=== PATIENT | male | born 1955 | race Caucasian/White ===

== ENCOUNTER → 2021-11-20 13:03 | Outpatient (CLI) | payer MEDICARE, SELFPAY ==
[2021-11-20 13:39] LABS: Basophils # 0.1 K/mm3 (0-0.2); Eosinophils # 0.2 K/mm3 (0.0-0.4); Eosinophils % 2.4 % (0.1-12.0); Hematocrit 40.2 % (42.0-52.0); Hemoglobin 12.3 g/dL (14.1-18.0); Lymphocytes # 0.8 K/mm3 (0.7-4.5); Lymphocytes % 13.5 % (10-50); Mean Corpuscular HGB Conc 30.5 g/dL (31.8-35.4); Mean Corpuscular Hemoglobin 29.8 pg (27.0-31.2); Mean Corpuscular Volume 97.6 fl (80-94); Mean Platelet Volume 8.2 fl (7.4-10.4); Monocytes # 0.4 K/mm3 (0.1-1.0); Monocytes % 5.8 % (1.7-9.3); Neutrophils # 4.7 K/mm3 (1.8-7.8); Neutrophils % 77.3 % (37.0-80.0); Platelet Count 357 K/mm3 (142-424); Red Blood Count 4.12 M/mm3 (4.60-6.20); Red Cell Distribution Width 15.5 % (11.5-17.5); White Blood Count 6.1 K/mm3 (4.8-10.8)
[2021-11-20 14:22] LABS: Chloride 99 mmol/L (98-107); Free T4 (Free Thyroxine) 1.09 ng/dl (0.78-2.19); Potassium 4.4 mmoL/L (3.5-5.1); Sodium 134 mmol/L (136-145)
[2021-11-20 14:24] LABS: Blood Urea Nitrogen 12 mg/dl (9-20); Estimated Glomerular Filt Rate 75 ml/min (>60); GFR (African American) 91 ML/MIN (>60)
[2021-11-20 14:25] LABS: Alanine Aminotransferase 20 U/L (12-78); Albumin Level 3.6 g/dl (3.5-5.0); Alkaline Phosphatase 97 U/L (38-126); Anion Gap 9.4 mEq/L (5-15); Aspartate Amino Transferase 36 U/L (17-59); Bilirubin,Total 0.2 mg/dl (0.2-1.3); Carbon Dioxide 30 mmol/L (22.0-30.0); Globulin 3.5 g/dL (1.3-3.2); Total Protein,Serum 7.1 g/dl (6.3-8.2)
[2021-11-20 14:26] LABS: Calcium 9.5 mg/dl (8.4-10.2); Glucose 170 mg/dl (74-100)
[2021-11-20 14:56] LABS: Thyroid Stimulating Hormone 1.24 uIU/mL (0.465-4.68)
== END ==
PROVIDERS: Internal Medicine Hematology & Oncology; Visit Provider Internal Medicine
DX: C34.90 Malignant neoplasm of unspecified part of unspecified bronchus or lung (principal); R53.83 Other fatigue
CPT/HCPCS: 36415; 80053; 84439; 84443; 85025

== ENCOUNTER → 2021-12-24 13:17 | Outpatient (CLI) | payer MEDICARE, SELFPAY ==
[2021-12-24 13:51] LABS: Basophils # 0.1 K/mm3 (0-0.2); Basophils % 0.8 % (0.1-2.0); Eosinophils # 0.2 K/mm3 (0.0-0.4); Eosinophils % 2.3 % (0.1-12.0); Hematocrit 41.8 % (42.0-52.0); Hemoglobin 13.5 g/dL (14.1-18.0); Lymphocytes # 1.4 K/mm3 (0.7-4.5); Mean Corpuscular HGB Conc 32.4 g/dL (31.8-35.4); Mean Corpuscular Hemoglobin 29.9 pg (27.0-31.2); Mean Corpuscular Volume 92.3 fl (80-94); Mean Platelet Volume 7.6 fl (7.4-10.4); Monocytes # 0.5 K/mm3 (0.1-1.0); Monocytes % 7.6 % (1.7-9.3); Neutrophils # 4.3 K/mm3 (1.8-7.8); Neutrophils % 67.3 % (37.0-80.0); Platelet Count 374 K/mm3 (142-424); Red Blood Count 4.52 M/mm3 (4.60-6.20); Red Cell Distribution Width 13.8 % (11.5-17.5); White Blood Count 6.4 K/mm3 (4.8-10.8)
[2021-12-24 16:07] LABS: Alanine Aminotransferase 27 U/L (12-78); Albumin Level 3.5 g/dl (3.5-5.0); Albumin/Globulin Ratio 1.1 (1.1-1.8); Alkaline Phosphatase 102 U/L (38-126); Anion Gap 14.6 mEq/L (5-15); Aspartate Amino Transferase 48 U/L (17-59); Bilirubin,Total 0.2 mg/dl (0.2-1.3); Blood Urea Nitrogen 11 mg/dl (9-20); Calcium 9.4 mg/dl (8.4-10.2); Carbon Dioxide 24 mmol/L (22.0-30.0); Chloride 97 mmol/L (98-107); Estimated Glomerular Filt Rate 75 ml/min (>60); GFR (African American) 90 ML/MIN (>60); Globulin 3.2 g/dL (1.3-3.2); Glucose 119 mg/dl (74-100); Potassium 4.6 mmoL/L (3.5-5.1); Sodium 131 mmol/L (136-145); Total Protein,Serum 6.7 g/dl (6.3-8.2)
[2021-12-24 16:22] LABS: Free T4 (Free Thyroxine) 0.95 ng/dl (0.78-2.19)
[2021-12-24 16:37] LABS: Thyroid Stimulating Hormone 0.97 uIU/mL (0.465-4.68)
== END ==
PROVIDERS: Visit Provider Internal Medicine Hematology & Oncology
DX: C34.90 Malignant neoplasm of unspecified part of unspecified bronchus or lung (principal); R53.83 Other fatigue
CPT/HCPCS: 36415; 80053; 84439; 84443; 85025

== ENCOUNTER → 2022-01-21 12:55 | Outpatient (CLI) | payer MEDICARE, SELFPAY ==
[2022-01-21 14:25] LABS: Basophils # 0.1 K/mm3 (0-0.2); Basophils % 0.9 % (0.1-2.0); Eosinophils # 0.2 K/mm3 (0.0-0.4); Eosinophils % 2.9 % (0.1-12.0); Hematocrit 41.4 % (42.0-52.0); Hemoglobin 13.6 g/dL (14.1-18.0); Lymphocytes # 1.4 K/mm3 (0.7-4.5); Lymphocytes % 23.1 % (10-50); Mean Corpuscular HGB Conc 32.8 g/dL (31.8-35.4); Mean Corpuscular Hemoglobin 29.6 pg (27.0-31.2); Mean Corpuscular Volume 90.2 fl (80-94); Mean Platelet Volume 8.2 fl (7.4-10.4); Monocytes # 0.4 K/mm3 (0.1-1.0); Monocytes % 7.1 % (1.7-9.3); Platelet Count 322 K/mm3 (142-424); Red Blood Count 4.59 M/mm3 (4.60-6.20); Red Cell Distribution Width 14.3 % (11.5-17.5)
== END ==
PROVIDERS: Visit Provider Internal Medicine Hematology & Oncology
DX: C34.90 Malignant neoplasm of unspecified part of unspecified bronchus or lung (principal)
CPT/HCPCS: 36415; 85025

== ENCOUNTER 2022-01-21 13:32 | Emergency (ER) | payer MEDICARE, SELFPAY ==
[2022-01-21] VITALS (7 sets, daily range): BP systolic 120–156; BP diastolic 68–87; PULSE 85–98; RESP 16–22; TEMP 36.7–36.8; O2SAT 96–98; BMI 24.2
--- NOTE | 2022-01-21 13:28 | ECG_ITS ---
APPROVED REPORT Exam: Resting ECG HR:100 bpm ECG Measurements Heart Rate 100 AXES WA 158 P 83 QRSd 90 QRS 92 QT 337 T 80 QTc 394 Conclusion SINUS TACHYCARDIA BORDERLINE RIGHT AXIS DEVIATION [QRS AXIS > 90] ABNORMAL RHYTHM ECG UNCONFIRMED REPORT Electronically signed by : Ted Carlson MD 01/21/2022 21:21:49
--- NOTE | 2022-01-21 13:58 | CT_ITS ---
FINAL REPORT TECHNIQUE: Postcontrast axial images of the chest were performed in a CTA protocol. This study was performed with techniques to keep radiation doses as low as reasonably achievable, (ALARA). Individualized dose reduction technique using automated exposure control or adjustment of mA and/or kV according to the patient's size were employed. CLINICAL HISTORY: chest pain, cancer, tachycardia FINDINGS: There is thickening of the thoracic esophagus, favor inflammatory. This could be further evaluated with upper endoscopy. The heart is normal in size. There is a small hiatal hernia. No adenopathy is identified. No pleural or pericardial effusion is identified. The thoracic aorta is normal in caliber with no focal aneurysm or dissection identified. There is no filling defect to suggest pulmonary embolism. Soft tissue opacities are seen of the left lung of uncertain etiology. Some of these are felt to be inflammatory. However, there is an area in the posterior left upper lobe measuring 31 mm containing cavitation. Findings may represent neoplasm or post treatment change. There are mild changes of emphysema. The images of the upper abdomen are unremarkable. IMPRESSION: No evidence for PE on this exam. Thickening of the thoracic esophagus, favor inflammatory. Findings could be further evaluated with upper endoscopy. Soft tissue opacity of the left lung which may be inflammatory. Area of cavitation in the posterior left upper lobe measuring 31 mm which may represent neoplasm or post treatment change. Reviewed, Interpreted and Dictated by Micah Verduzco III, MD Transcribed by Michelle Bernstein Authenticated and [facility]
--- NOTE | 2022-01-21 14:00 | HMH.EDCP ---
Discharge Plan Disposition Patient Disposition: Home, Self-Care Condition: Fair Prescriptions Prescriptions: No Action No Known Home Medications Referrals Follow up/Referrals: Provider,MD Hernan [Primary Care Provider] - See instructions Clinical Impressions Clinical Impression: Chest pain Discharge ED Provider: Abelardo Rutherford Chest Pain HPI General Chief Complaint: Chest Pain Stated Complaint: chest pain Time Seen by Provider: 01/21/22 13:50 Mode of Arrival: Ambulatory Source of Information: Patient Limitations: No Limitations Description of Symptoms (Recalled from ER Triage Doc. by RN): PT REPORTS DULL CHEST PAIN THAT STARTED ON FRIDAY. SHARP CHEST PAIN WITH COUGHING OR SNEEZING History of Present Illness HPI narrative: Patient is a 66-year-old male with past medical history of lung cancer who states that he started to get chest pain on Friday. He locates it in his left side and says that it is worse with coughing or sneezing. He says this is happened 1 time in the past and he was evaluated but subsequently left ED because the wait was too long. He says that he had radiation around that area and is wondering if his pain is from the radiation. He still goes to immunotherapy. He denies any congestion. Denies any hemoptysis. Denies any fever or chills. Denies any abdominal pain. No shoulder pain. He says the pain is worse with deep inspiration. Related Data Home Medications Medication Instructions Recorded Confirmed No Known Home Medications 01/21/22 01/21/22 Allergies Allergy/AdvReac Type Severity Reaction Status Date / Time Penicillins Allergy Verified 01/21/22 13:38 [facility] Medical History (Updated 01/21/22 @ 16:51 by Abelarod Rutherford MD) Non-small cell lung cancer Family History (Updated 01/21/22 @ 13:47 by Karen Barnett RN) Other No significant family history Social History (Updated 01/21/22 @ 13:47 by Karen Barnett RN) Smoking Status: Current every day smoker alcohol intake: never current occupational status: disabled Travel in the last 8 weeks: None ROS Obtained: Yes All systems reviewed & no additional complaints except as documented A 14 point review system was obtained otherwise negative except per HPI Physical Exam General General appearance: alert and in no apparent distress Head Head exam: atraumatic, normocephalic and normal inspection Eye Eye exam: Present normal appearance, PERRL and EOMI ENT ENT exam: Present normal exam, normal oropharynx, mucous membranes moist, TM's normal bilaterally and normal external ear exam Neck Neck exam: Present normal inspection, full ROM and trachea midline; Absent meningismus or lymphadenopathy Chest Chest inspection: Present normal inspection and symmetric chest wall rise; Absent tenderness Respiratory Respiratory exam: Present normal lung sounds bilaterally; Absent respiratory distress Cardiovascular Cardiovascular exam: Present normal rhythm and tachycardia; Absent JVD Abdominal Exam Abdominal exam: Present soft and normal bowel sounds; Absent distention, tenderness or guarding Extremities Exam Extremities exam: Present normal inspection, full ROM and normal capillary refill; Absent calf tenderness Back Exam Back exam: Present normal inspection; Absent tenderness Neurological Exam Neurological exam: Present alert and oriented X3 Psychiatric Psychiatric exam: Present normal affect and normal mood Skin Skin exam: Present warm, dry, intact and normal color Lymphatic Lymphatic Findings: no adenopathy Medical Decision Making Medical Records Medical records reviewed: Yes I reviewed the patient's medical records. Ag Inquiry Pt receiving controlled substance: No Vital Signs: 01/21/22 13:33 01/21/22 14:00 01/21/22 14:31 Temperature 98.2 F Temperature Source Oral Pulse Rate 90 85 Pulse Rate [Radial] 98 H Respiratory Rate 18 16 20 Blood Pressure 150/87 H
[2022-01-21 14:06] LABS: Basophils # 0.1 K/mm3 (0-0.2); Basophils % 1.1 % (0.1-2.0); Eosinophils # 0.2 K/mm3 (0.0-0.4); Hematocrit 41.3 % (42.0-52.0); Hemoglobin 13.8 g/dL (14.1-18.0); Lymphocytes # 1.4 K/mm3 (0.7-4.5); Lymphocytes % 22.7 % (10-50); Mean Corpuscular HGB Conc 33.4 g/dL (31.8-35.4); Mean Corpuscular Volume 89.9 fl (80-94); Mean Platelet Volume 7.8 fl (7.4-10.4); Monocytes # 0.4 K/mm3 (0.1-1.0); Neutrophils # 4.1 K/mm3 (1.8-7.8); Neutrophils % 66.3 % (37.0-80.0); Platelet Count 298 K/mm3 (142-424); Red Cell Distribution Width 14.1 % (11.5-17.5); White Blood Count 6.2 K/mm3 (4.8-10.8)
[2022-01-21 14:07] LABS: Chloride 99 mmol/L (98-107)
[2022-01-21 14:08] LABS: Potassium 3.9 mmoL/L (3.5-5.1); Sodium 134 mmol/L (136-145)
[2022-01-21 14:10] LABS: Alanine Aminotransferase 77 U/L (12-78); Alkaline Phosphatase 83 U/L (38-126); Aspartate Amino Transferase 100 U/L (17-59); Bilirubin,Total 0.2 mg/dl (0.2-1.3); Blood Urea Nitrogen 15 mg/dl (9-20); Creatinine Clearance Estimated 70 mL/min (50-200); Estimated Glomerular Filt Rate 75 ml/min (>60); GFR (African American) 90 ML/MIN (>60)
[2022-01-21 14:11] LABS: Albumin Level 3.7 g/dl (3.5-5.0); Albumin/Globulin Ratio 1.1 (1.1-1.8); Anion Gap 9.9 mEq/L (5-15); Calcium 8.6 mg/dl (8.4-10.2); Carbon Dioxide 29 mmol/L (22.0-30.0); Globulin 3.4 g/dL (1.3-3.2); Glucose 123 mg/dl (74-100); Total Protein,Serum 7.1 g/dl (6.3-8.2)
[2022-01-21 14:16] LABS: C-Reactive Protein 34.5 mg/L (0-4)
--- NOTE | 2022-01-21 14:18 | PC.NURSE ---
PT MEDICATED PER EMAR, PT TALKING ON PHONE, WARM BLANKET PROVIDED. NO NEEDS AT THIS TIME
[2022-01-21 14:26] LABS: Troponin I < 0.01 ng/ml (0.00-0.034)
--- NOTE | 2022-01-21 14:49 | PC.NURSE ---
rounded on pt at this time, pt states no needs at this time. Notified pt radiology should be in soon to get him for CTA, pt verbalized understanding. Call light within reach.
--- NOTE | 2022-01-21 16:14 | PC.NURSE ---
contacted rad to check on status of CT results, rad staff states they will check on it
== END 2022-01-21 17:25 | disposition home or self-care (01) ==
PROVIDERS: Emergency Provider Student in an Organized Health Care Education/Training Program
DX: R07.9 Chest pain, unspecified (principal); Z85.118 Personal history of other malignant neoplasm of bronchus and lung; Z88.0 Allergy status to penicillin; Z72.0 Tobacco use
CPT/HCPCS: 36415; 71275; 80053; 84484; 85025; 86140; 93005; 99284; Q9967

== ENCOUNTER → 2022-02-11 12:24 | Outpatient (CLI) | payer MEDICARE, SELFPAY ==
--- NOTE | 2022-02-11 | CA_ITS ---
APPROVED REPORT EXAM: Comprehensive 2D, Doppler, and color-flow Echocardiogram Marketing Trainee: STEPHY Villalpando, RVS Ht: 5 ft 6 in Wt: 150lbs BSA: 1.77 HR: 110 bpm BP: 126/84 mmHg Rhythm: Irregular Indications: CP, Small cell lung Cancer, murmur 2D Dimensions IVSd 1.13 cm LVEF (Visual) 52.80 % PWd 0.93 cm LA Volume 35.00 mL LVDd 4.31 cm LA Volume Index 19.30 mL/m2 (M/F) 16-34 LVDs 3.15 cm Aortic Root 3.49 cm Left Atrium 3.43 cm LVOT 1.87 cm (M/F) 1.5-2.5 M-Mode Dimensions RVDd 2.55 cm (0.9-2.6) LA Diam 3.70 cm (1.9-4.0) LVDd 4.59 cm (3.5-5.7) Ao Diam 3.33 cm (2.0-3.7) LVDs 3.45 cm (3.5-5.7) IVSd 1.17 cm (0.6-1.1) PWd 1.04 cm (0.6-1.1) EF (Teich) 49.30% EPSs 0.13 cm FS 24.80% EDV (Teich) 96.80 mL TAPSE 2.08 (<1.7) ESV (Teich) 49.10 mL LV Diastology E Decel Time 170.00 (160-240 msec) E/A Ratio 0.60 MED E' 5.30 (< 7 cm/sec) MED A' 10.80 cm/s E'/MED E' Ratio 12.58 (>14) LAT E' 7.30 (<10 cm/sec) LAT A' 13.30 cm/s E/LAT E' Ratio 9.14 (>14) Aortic Valve LVOT Max 114.00 (70-110 cm/s) LVOT VTI 21.30 cm AoV Peak Jose L. 122.00 (50-130 cm/s) AO Peak GR. 6.00 mmHg AO Mean GR. 2.90 (<5 mmHg) AO VTI 20.94 (18-25 cm) CHECO (VTI) 2.79 (2.5-4.5 cm2) Mitral Valve MV A Velocity 111.00 (40-130 cm/s) E/A Ratio 0.60 MV Decel. Time 170.00 (160-240 ms) Pulmonary Valve PV Peak Velocity 81.00 (50-150 cm/s) ID End VMAX 117.00 cm/s Tricuspid Valve TR P. Velocity 179.00 cm/s RAP Estimate 10.00 mmHg RVSP 22.80 mmHg Left Ventricle Left atrium is mildly enlarged, left ventricle is normal size mild concentric left ventricular hypertrophy, estimated ejection fraction 55% with no regional wall motion abnormality, grade 1 diastolic dysfunction seen without tissue Doppler evidence of raise left atrial pressure. Right Ventricle Right atrium and right ventricle are normal size and contractility. Aortic Valve Aortic valve is minimally thickened and fibrosed there is no aortic stenosis or aortic insufficiency. Mitral Valve Mitral valve grossly normal, there is trace mitral regurgitation. Tricuspid Valve Tricuspid valve grossly normal, there is trace tricuspid regurgitation, tricuspid regurgitation jet velocity is inadequate for calculation of the right ventricular systolic pressure. Pulmonic Valve Pulmonic valve is poorly visualized. Great Vessels Aortic root is normal size. Inferior vena cava is normal size with normal inspiratory collapse. Pericardium No significant pericardial effusion noted. Conclusion 1. Mildly enlarged atrium, normal left ventricular size, mild concentric left ventricular hypertrophy, estimated ejection fraction 55% with no regional wall motion abnormality, grade 1 diastolic dysfunction seen without tissue Doppler evidence of raise left atrial pressure. 2. Trace mitral and tricuspid regurgitation. 3. No significant pericardial effusion. 4. Inferior vena cava normal size with normal inspiratory collapse. Electronically signed by : Pete Fabian MD 02/11/2022 13:26:12
== END ==
PROVIDERS: PCP Internal Medicine Hematology & Oncology; Visit Provider Internal Medicine Hematology & Oncology
DX: R07.9 Chest pain, unspecified (principal)
CPT/HCPCS: 93306

== ENCOUNTER → 2022-02-18 12:21 | Outpatient (CLI) | payer MEDICARE, SELFPAY ==
[2022-02-18 13:21] LABS: Basophils # 0.1 K/mm3 (0-0.2); Basophils % 0.9 % (0.1-2.0); Eosinophils # 0.2 K/mm3 (0.0-0.4); Eosinophils % 3.1 % (0.1-12.0); Hematocrit 41.6 % (42.0-52.0); Hemoglobin 13.3 g/dL (14.1-18.0); Lymphocytes # 1.2 K/mm3 (0.7-4.5); Mean Corpuscular HGB Conc 32.1 g/dL (31.8-35.4); Mean Corpuscular Hemoglobin 29.1 pg (27.0-31.2); Mean Corpuscular Volume 90.9 fl (80-94); Mean Platelet Volume 7.8 fl (7.4-10.4); Monocytes # 0.4 K/mm3 (0.1-1.0); Neutrophils # 4.6 K/mm3 (1.8-7.8); Platelet Count 397 K/mm3 (142-424); Red Blood Count 4.57 M/mm3 (4.60-6.20); Red Cell Distribution Width 14.3 % (11.5-17.5); White Blood Count 6.5 K/mm3 (4.8-10.8)
[2022-02-18 13:39] LABS: Chloride 99 mmol/L (98-107); Potassium 4.2 mmoL/L (3.5-5.1); Sodium 134 mmol/L (136-145)
[2022-02-18 13:41] LABS: Blood Urea Nitrogen 11 mg/dl (9-20); Estimated Glomerular Filt Rate 75 ml/min (>60); GFR (African American) 90 ML/MIN (>60)
[2022-02-18 13:42] LABS: Alanine Aminotransferase 21 U/L (12-78); Albumin Level 3.4 g/dl (3.5-5.0); Albumin/Globulin Ratio 1.1 (1.1-1.8); Alkaline Phosphatase 87 U/L (38-126); Anion Gap 12.2 mEq/L (5-15); Aspartate Amino Transferase 34 U/L (17-59); Bilirubin,Total 0.3 mg/dl (0.2-1.3); Calcium 9.4 mg/dl (8.4-10.2); Carbon Dioxide 27 mmol/L (22.0-30.0); Globulin 3.1 g/dL (1.3-3.2); Glucose 94 mg/dl (74-100); Total Protein,Serum 6.5 g/dl (6.3-8.2)
[2022-02-18 13:59] LABS: Free T4 (Free Thyroxine) 1.25 ng/dl (0.78-2.19)
[2022-02-18 14:13] LABS: Thyroid Stimulating Hormone 0.86 uIU/mL (0.465-4.68)
== END ==
PROVIDERS: PCP Internal Medicine Hematology & Oncology; Visit Provider Internal Medicine Hematology & Oncology
DX: C34.90 Malignant neoplasm of unspecified part of unspecified bronchus or lung (principal); D64.9 Anemia, unspecified
CPT/HCPCS: 36415; 80053; 84439; 84443; 85025

== ENCOUNTER → 2022-03-22 07:41 | Outpatient (CLI) | payer MEDICARE, SELFPAY ==
--- NOTE | 2022-03-22 07:53 | CT_ITS ---
FINAL REPORT TECHNIQUE: Axial imaging of the chest was obtained without contrast. Reformatted images were also obtained and reviewed.This study was performed with techniques to keep radiation doses as low as reasonably achievable, (ALARA). Individualized dose reduction technique using automated exposure control or adjustment of mA and/or kV according to the patient's size were employed. CLINICAL HISTORY: SMALL CELL CARCINOMA STAGE 3 COMPARISON: 01/21/2022 FINDINGS: There is persistent esophageal wall thickening, favor inflammatory. There is no axillary adenopathy. There is no hilar or mediastinal mass or adenopathy. Heart size is normal. There is a small left pleural effusion. Persistent opacity is seen in the posterior left upper lobe/lingula measuring up to 31 mm, not significantly changed from prior exam. 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 Other left upper lobe opacities are stable. There is also a stable nodular opacity in the left lower lobe with area of cavitation somewhat smaller than on prior exam. No new pulmonary abnormalities is seen. Limited images of the upper abdomen are unremarkable. IMPRESSION: No significant interval change in left lung opacities, favor post treatment change. However, superimposed neoplastic involvement not excluded. Consider follow-up CT. Reviewed, Interpreted and Dictated by Micah Verduzco III, MD Transcribed by Michelle Bernstein Authenticated and [facility]
[2022-03-22 08:26] LABS: Basophils # 0.1 K/mm3 (0-0.2); Basophils % 1.7 % (0.1-2.0); Eosinophils # 0.2 K/mm3 (0.0-0.4); Eosinophils % 4.4 % (0.1-12.0); Hematocrit 44.1 % (42.0-52.0); Lymphocytes % 20.4 % (10-50); Mean Corpuscular HGB Conc 31.8 g/dL (31.8-35.4); Mean Corpuscular Hemoglobin 29.7 pg (27.0-31.2); Mean Corpuscular Volume 93.4 fl (80-94); Mean Platelet Volume 7.9 fl (7.4-10.4); Monocytes # 0.3 K/mm3 (0.1-1.0); Monocytes % 6.3 % (1.7-9.3); Neutrophils # 3.3 K/mm3 (1.8-7.8); Neutrophils % 67.3 % (37.0-80.0); Platelet Count 311 K/mm3 (142-424); Red Blood Count 4.72 M/mm3 (4.60-6.20); Red Cell Distribution Width 14.2 % (11.5-17.5); White Blood Count 4.9 K/mm3 (4.8-10.8)
[2022-03-22 08:32] LABS: Chloride 104 mmol/L (98-107); Potassium 4.5 mmoL/L (3.5-5.1); Sodium 138 mmol/L (136-145)
[2022-03-22 08:34] LABS: Blood Urea Nitrogen 14 mg/dl (9-20); Estimated Glomerular Filt Rate 67 ml/min (>60); GFR (African American) 81 ML/MIN (>60)
[2022-03-22 08:35] LABS: Alanine Aminotransferase 24 U/L (12-78); Albumin Level 3.7 g/dl (3.5-5.0); Albumin/Globulin Ratio 1.2 (1.1-1.8); Alkaline Phosphatase 86 U/L (38-126); Anion Gap 9.5 mEq/L (5-15); Aspartate Amino Transferase 35 U/L (17-59); Bilirubin,Total 0.2 mg/dl (0.2-1.3); Calcium 9.3 mg/dl (8.4-10.2); Carbon Dioxide 29 mmol/L (22.0-30.0); Glucose 92 mg/dl (74-100); Total Protein,Serum 6.7 g/dl (6.3-8.2)
[2022-03-22 09:00] LABS: Free T4 (Free Thyroxine) 1.16 ng/dl (0.78-2.19)
[2022-03-22 09:06] LABS: Thyroid Stimulating Hormone 2.42 uIU/mL (0.465-4.68)
== END ==
PROVIDERS: PCP Internal Medicine Hematology & Oncology; Visit Provider Internal Medicine Hematology & Oncology
DX: C34.90 Malignant neoplasm of unspecified part of unspecified bronchus or lung (principal); D64.9 Anemia, unspecified
CPT/HCPCS: 36415; 71250; 80053; 84439; 84443; 85025

== ENCOUNTER 2022-04-29 12:02 | Outpatient (CLI) | payer MEDICARE, SELFPAY ==
[2022-04-29 12:07] VITALS: BMI 25.2
[2022-04-29 12:34] LABS: Basophils % 0.8 % (0.1-2.0); Eosinophils # 0.2 K/mm3 (0.0-0.4); Eosinophils % 3.6 % (0.1-12.0); Hematocrit 40.4 % (42.0-52.0); Mean Corpuscular HGB Conc 34.7 g/dL (31.8-35.4); Mean Corpuscular Hemoglobin 30.4 pg (27.0-31.2); Mean Corpuscular Volume 87.6 fl (80-94); Mean Platelet Volume 8.1 fl (7.4-10.4); Monocytes # 0.5 K/mm3 (0.1-1.0); Monocytes % 8.9 % (1.7-9.3); Neutrophils # 3.7 K/mm3 (1.8-7.8); Neutrophils % 68.8 % (37.0-80.0); Platelet Count 426 K/mm3 (142-424); Red Blood Count 4.61 M/mm3 (4.60-6.20); White Blood Count 5.4 K/mm3 (4.8-10.8)
[2022-04-29 12:40] LABS: Chloride 99 mmol/L (98-107); Potassium 4.1 mmoL/L (3.5-5.1); Sodium 134 mmol/L (136-145)
[2022-04-29 12:42] LABS: Alanine Aminotransferase 21 U/L (12-78); Aspartate Amino Transferase 32 U/L (17-59); Blood Urea Nitrogen 7 mg/dl (9-20); Creatinine Clearance Estimated 73 mL/min (50-200); Estimated Glomerular Filt Rate 97 ml/min (>60); GFR (African American) 117 ML/MIN (>60)
[2022-04-29 12:43] LABS: Albumin Level 3.8 g/dl (3.5-5.0); Albumin/Globulin Ratio 1.1 (1.1-1.8); Alkaline Phosphatase 87 U/L (38-126); Anion Gap 10.1 mEq/L (5-15); Bilirubin,Total 0.5 mg/dl (0.2-1.3); Carbon Dioxide 29 mmol/L (22.0-30.0); Globulin 3.6 g/dL (1.3-3.2); Glucose 101 mg/dl (74-100); Total Protein,Serum 7.4 g/dl (6.3-8.2)
[2022-04-29 13:14] LABS: Thyroid Stimulating Hormone 0.64 uIU/mL (0.465-4.68)
[2022-04-29 13:40] VITALS: BP 167/79; PULSE 89; RESP 18; TEMP 36.2; O2SAT 99
[2022-04-29 14:00] VITALS: BP 156/74; PULSE 86; RESP 18; O2SAT 98
[2022-04-29 14:30] VITALS: BP 147/78; PULSE 88; RESP 18; O2SAT 98
[2022-04-29 14:42] VITALS: BP 167/92; PULSE 92; RESP 18; O2SAT 99
== END 2022-04-29 14:50 | disposition home or self-care (01) ==
PROVIDERS: PCP Family Medicine; Visit Provider Internal Medicine Medical Oncology
DX: Z51.11 Encounter for antineoplastic chemotherapy (principal); Z79.899 Other long term (current) drug therapy; C34.92 Malignant neoplasm of unspecified part of left bronchus or lung
CPT/HCPCS: 80053; 84443; 85025; 96413; J9173

== ENCOUNTER 2022-05-23 11:36 | Outpatient (CLI) | payer MEDICARE, SELFPAY ==
[2022-05-23 11:47] VITALS: BMI 25.4
[2022-05-23 12:00] LABS: Chloride 102 mmol/L (98-107); Sodium 136 mmol/L (136-145)
[2022-05-23 12:03] LABS: Alanine Aminotransferase 20 U/L (12-78); Albumin Level 3.4 g/dl (3.5-5.0); Alkaline Phosphatase 94 U/L (38-126); Aspartate Amino Transferase 30 U/L (17-59); Bilirubin,Total 0.3 mg/dl (0.2-1.3); Blood Urea Nitrogen 13 mg/dl (9-20); Calcium 8.8 mg/dl (8.4-10.2); Carbon Dioxide 24 mmol/L (22.0-30.0); Creatinine Clearance Estimated 74 mL/min (50-200); Estimated Glomerular Filt Rate 75 ml/min (>60); GFR (African American) 90 ML/MIN (>60); Globulin 3.3 g/dL (1.3-3.2); Glucose 112 mg/dl (74-100); Total Protein,Serum 6.7 g/dl (6.3-8.2)
[2022-05-23 12:10] LABS: Basophils # 0.1 K/mm3 (0-0.2); Basophils % 0.9 % (0.1-2.0); Eosinophils # 0.3 K/mm3 (0.0-0.4); Eosinophils % 4.3 % (0.1-12.0); Hematocrit 40.7 % (42.0-52.0); Hemoglobin 13.3 g/dL (14.1-18.0); Lymphocytes # 1.4 K/mm3 (0.7-4.5); Lymphocytes % 20.1 % (10-50); Mean Corpuscular HGB Conc 32.7 g/dL (31.8-35.4); Mean Corpuscular Hemoglobin 29.2 pg (27.0-31.2); Mean Corpuscular Volume 89.2 fl (80-94); Mean Platelet Volume 8.6 fl (7.4-10.4); Monocytes # 0.4 K/mm3 (0.1-1.0); Monocytes % 6.1 % (1.7-9.3); Neutrophils # 4.7 K/mm3 (1.8-7.8); Neutrophils % 68.6 % (37.0-80.0); Platelet Count 484 K/mm3 (142-424); Red Blood Count 4.56 M/mm3 (4.60-6.20); Red Cell Distribution Width 13.6 % (11.5-17.5); White Blood Count 6.9 K/mm3 (4.8-10.8)
[2022-05-23 12:34] LABS: Thyroid Stimulating Hormone 0.58 uIU/mL (0.465-4.68)
[2022-05-23 13:46] VITALS: BP 146/77; PULSE 81; RESP 18; TEMP 36.4; O2SAT 96
[2022-05-23 14:15] VITALS: BP 137/76; PULSE 83; RESP 18
[2022-05-23 14:50] VITALS: BP 136/74; PULSE 88; RESP 18
== END 2022-05-23 15:02 | disposition home or self-care (01) ==
LOC: INF 11:37
PROVIDERS: PCP Family Medicine; Visit Provider Internal Medicine Medical Oncology
DX: Z51.11 Encounter for antineoplastic chemotherapy (principal); C34.92 Malignant neoplasm of unspecified part of left bronchus or lung; Z79.899 Other long term (current) drug therapy
CPT/HCPCS: 80053; 82533; 84443; 85025; 96413; J9173

== ENCOUNTER 2022-06-20 10:50 | Outpatient (CLI) | payer MEDICARE, SELFPAY ==
[2022-06-20 10:55] VITALS: BMI 25.2
[2022-06-20 11:27] LABS: Basophils # 0.1 K/mm3 (0-0.2); Basophils % 0.9 % (0.1-2.0); Eosinophils # 0.3 K/mm3 (0.0-0.4); Eosinophils % 5.1 % (0.1-12.0); Hematocrit 42.4 % (42.0-52.0); Hemoglobin 14.1 g/dL (14.1-18.0); Lymphocytes # 1.3 K/mm3 (0.7-4.5); Lymphocytes % 22.7 % (10-50); Mean Corpuscular HGB Conc 33.2 g/dL (31.8-35.4); Mean Corpuscular Hemoglobin 29.7 pg (27.0-31.2); Mean Corpuscular Volume 89.4 fl (80-94); Mean Platelet Volume 7.9 fl (7.4-10.4); Monocytes # 0.5 K/mm3 (0.1-1.0); Monocytes % 9.3 % (1.7-9.3); Neutrophils # 3.5 K/mm3 (1.8-7.8); Neutrophils % 61.9 % (37.0-80.0); Platelet Count 424 K/mm3 (142-424); Red Blood Count 4.74 M/mm3 (4.60-6.20); Red Cell Distribution Width 13.8 % (11.5-17.5); White Blood Count 5.7 K/mm3 (4.8-10.8)
[2022-06-20 11:52] LABS: Alanine Aminotransferase 18 U/L (12-78); Albumin Level 3.6 g/dl (3.5-5.0); Albumin/Globulin Ratio 1.2 (1.1-1.8); Alkaline Phosphatase 75 U/L (38-126); Anion Gap 10.3 mEq/L (5-15); Aspartate Amino Transferase 33 U/L (17-59); Bilirubin,Total 0.7 mg/dl (0.2-1.3); Blood Urea Nitrogen 12 mg/dl (9-20); Calcium 8.7 mg/dl (8.4-10.2); Carbon Dioxide 27 mmol/L (22.0-30.0); Chloride 99 mmol/L (98-107); Creatinine Clearance Estimated 73 mL/min (50-200); Estimated Glomerular Filt Rate 84 ml/min (>60); GFR (African American) 102 ML/MIN (>60); Globulin 2.9 g/dL (1.3-3.2); Glucose 100 mg/dl (74-100); Potassium 4.3 mmoL/L (3.5-5.1); Sodium 132 mmol/L (136-145); Total Protein,Serum 6.5 g/dl (6.3-8.2)
[2022-06-20 12:20] VITALS: BP 150/75; PULSE 82; RESP 18; O2SAT 96
[2022-06-20 12:21] LABS: Thyroid Stimulating Hormone 1.32 uIU/mL (0.465-4.68)
[2022-06-20 12:35] VITALS: BP 128/70; PULSE 82; RESP 18
[2022-06-20 12:50] VITALS: BP 134/72; PULSE 82; RESP 16
[2022-06-20 13:05] VITALS: BP 130/76; PULSE 78; RESP 16
[2022-06-20 13:20] VITALS: BP 132/70; PULSE 79; RESP 16
[2022-06-21 13:50] LABS: Adrenocorticotropic Hormone 12.6 pg/mL (7.2-63.3)
== END 2022-06-20 13:35 | disposition home or self-care (01) ==
LOC: INF 10:51
PROVIDERS: PCP Family Medicine; Visit Provider Internal Medicine Medical Oncology
DX: Z51.11 Encounter for antineoplastic chemotherapy (principal); C34.92 Malignant neoplasm of unspecified part of left bronchus or lung; Z79.899 Other long term (current) drug therapy
CPT/HCPCS: 36415; 80053; 82024; 82533; 84443; 85025; 96413; J9173

== ENCOUNTER 2022-07-18 10:29 | Outpatient (CLI) | payer MEDICARE, SELFPAY ==
[2022-07-18 10:33] VITALS: BMI 24.3
[2022-07-18 11:14] LABS: Basophils % 0.4 % (0.1-2.0); Eosinophils # 0.4 K/mm3 (0.0-0.4); Eosinophils % 4.5 % (0.1-12.0); Hematocrit 42.6 % (42.0-52.0); Hemoglobin 13.5 g/dL (14.1-18.0); Lymphocytes # 1.9 K/mm3 (0.7-4.5); Lymphocytes % 23.8 % (10-50); Mean Corpuscular HGB Conc 31.6 g/dL (31.8-35.4); Mean Corpuscular Volume 91.5 fl (80-94); Mean Platelet Volume 7.9 fl (7.4-10.4); Monocytes # 0.5 K/mm3 (0.1-1.0); Monocytes % 5.7 % (1.7-9.3); Neutrophils # 5.1 K/mm3 (1.8-7.8); Neutrophils % 65.6 % (37.0-80.0); Platelet Count 390 K/mm3 (142-424); Red Blood Count 4.66 M/mm3 (4.60-6.20); Red Cell Distribution Width 14.2 % (11.5-17.5); White Blood Count 7.8 K/mm3 (4.8-10.8)
[2022-07-18 11:32] LABS: Alanine Aminotransferase 21 U/L (12-78); Albumin Level 3.3 g/dl (3.5-5.0); Albumin/Globulin Ratio 1.1 (1.1-1.8); Alkaline Phosphatase 96 U/L (38-126); Anion Gap 8.3 mEq/L (5-15); Aspartate Amino Transferase 34 U/L (17-59); Bilirubin,Total 0.5 mg/dl (0.2-1.3); Blood Urea Nitrogen 8 mg/dl (9-20); Calcium 8.8 mg/dl (8.4-10.2); Carbon Dioxide 26 mmol/L (22.0-30.0); Chloride 100 mmol/L (98-107); Creatinine Clearance Estimated 70 mL/min (50-200); Estimated Glomerular Filt Rate 84 ml/min (>60); GFR (African American) 102 ML/MIN (>60); Globulin 2.9 g/dL (1.3-3.2); Glucose 103 mg/dl (74-100); Potassium 4.3 mmoL/L (3.5-5.1); Sodium 130 mmol/L (136-145); Total Protein,Serum 6.2 g/dl (6.3-8.2)
[2022-07-18 12:02] LABS: Thyroid Stimulating Hormone 1.12 uIU/mL (0.465-4.68)
[2022-07-18 13:10] VITALS: BP 136/77; PULSE 86; RESP 16; TEMP 36.4
[2022-07-18 13:25] VITALS: BP 137/100; PULSE 93; RESP 16
[2022-07-18 13:40] VITALS: BP 134/67; PULSE 91; RESP 16
[2022-07-18 13:55] VITALS: BP 161/78; PULSE 91; RESP 16
[2022-07-18 14:10] VITALS: BP 141/71; PULSE 93; RESP 16
== END 2022-07-18 14:20 | disposition home or self-care (01) ==
LOC: INF 10:30
PROVIDERS: PCP Family Medicine; Visit Provider Internal Medicine Medical Oncology
DX: Z51.11 Encounter for antineoplastic chemotherapy (principal); C34.92 Malignant neoplasm of unspecified part of left bronchus or lung; Z79.899 Other long term (current) drug therapy
CPT/HCPCS: 80053; 84443; 85025; 96413; J9173

== ENCOUNTER 2022-07-26 16:59 | Emergency (ER) | payer MEDICARE, SELFPAY ==
[2022-07-26] VITALS (9 sets, daily range): BP systolic 115–159; BP diastolic 67–90; PULSE 51–127; RESP 15–22; TEMP 36.7–37.6; O2SAT 93–98; BMI 24.2
--- NOTE | 2022-07-26 17:09 | PC.NURSE ---
covid swab sent to lab
--- NOTE | 2022-07-26 17:10 | HMH.EDSOB ---
Discharge Plan Disposition Patient Disposition: Home, Self-Care Prescriptions Prescriptions: New azithromycin 250 mg tablet 250 mg PO DAILY Qty: 4 0RF levofloxacin 500 mg tablet 500 mg PO DAILY 5 Days Qty: 5 0RF No Action hydrocodone-acetaminophen 5-325 mg tablet 1 tab PO Q8H PRN (Reason: pain) Qty: 30 0RF alfuzosin 10 mg tablet extended release 24 hr 10 mg PO DAILY Rx Instructions: administer after the same meal each day omeprazole magnesium [Prilosec OTC] 20 mg tablet,delayed release (DR/EC) 20 mg PO DAILY tamsulosin 0.4 mg capsule 0.4 mg PO HS Referrals Follow up/Referrals: Bhraat Gonzales MD [Primary Care Provider] - See instructions Activity Restrictions/Add. Instructions Additional Instructions/Restrictions: Please follow-up with your primary care doctor in about 2 days. Return to the emergency department immediately if you feel worse in any way. Your work-up today showed that you have pneumonia on the left side. You have been given your first doses of antibiotics in the emergency department. Please start taking the oral antibiotics tomorrow. They have been sent to the [facility] pharmacy in [place]. Clinical Impressions Clinical Impression: Pneumonia, Lung cancer Instructions Patient Instructions: Pneumonia-Adult Discharge ED Provider: Garth Hernandez Resp/SOB HPI General Chief Complaint: Nausea/Vomiting/Diarrhea Stated Complaint: infusion 07/18, body aches, abd pain, h/a, dizzy Time Seen by Provider: 07/26/22 17:06 Mode of Arrival: Family Vehicle Source of Information: Patient and Spouse History of Present Illness The patient presents to the emergency department complaining of incessant coughing since last night. The patient is a smoker. He has a diagnosis of lung cancer and COPD. The patient also feels chills and feverish. He had some nausea with one episode of vomiting last night. He denies any diarrhea. He is not currently on chemotherapy but is on immunotherapy. Complaint: shortness of breath and cough Related Data Home Medications Medication Instructions Recorded Confirmed alfuzosin 10 mg tablet,extended 10 mg PO DAILY Edema 04/29/22 07/18/22 release 24 hr omeprazole magnesium 20 mg 20 mg PO DAILY GERD 04/29/22 07/18/22 tablet,delayed release (Prilosec OTC) tamsulosin 0.4 mg capsule 0.4 mg PO HS PROSTATE 06/20/22 07/18/22 Previous Rx's Medication Instructions Recorded hydrocodone 5 mg-acetaminophen 325 1 tab PO Q8H PRN pain #30 tabs 05/23/22 mg tablet azithromycin 250 mg tablet 250 mg PO DAILY #4 tabs 07/26/22 levofloxacin 500 mg tablet 500 mg PO DAILY 5 days #5 tabs 07/26/22 Allergies Allergy/AdvReac Type Severity Reaction Status Date / Time Penicillins Allergy Verified 07/18/22 11:12 [facility] Disclaimer: The information contained in this section may have been updated after the patient was seen, as this information can be updated by other users. Medical History Non-small cell lung cancer Surgical History History of skin graft Family History Other No significant family history Social History Smoking Status: Unknown if ever smoked alcohol intake: never current occupational status: disabled Travel in the last 8 weeks: None ROS Obtained: Yes All systems reviewed & no additional complaints except as documented Physical Exam General General appearance: alert and in no apparent distress Head Head exam: atraumatic Eye Eye exam: Present normal appearance and EOMI; Absent scleral icterus, conjunctival redness or jaundice ENT ENT exam: Present normal exam Neck Neck exam: Present normal inspection and full ROM; Absent tenderness or meningismus Chest Chest inspection: Present normal
--- NOTE | 2022-07-26 17:14 | XR_ITS ---
PROCEDURE INFORMATION: Exam: XR Chest Exam date and time: 07/26/2022 5:58 PM Age: 66 years old Clinical indication: Shortness of breath; Patient HX: SOA x mos, worsened today; Additional info: Cough. Stage III small cell lung cancer TECHNIQUE: Imaging protocol: Radiologic exam of the chest. Views: 1 view. COMPARISON: CT CHEST WO CON 03/22/2022 7:55 AM FINDINGS: Lungs: There is mild volume loss left hemithorax that may be postsurgical or, unchanged. There is persistent confluent consolidative density just to the left of the aortic knob unchanged likely representing site of patient's original tumor that may represent combination of scarring and post radiation changes with residual tumor to be excluded. There also some streaky opacities more inferiorly left mid lung zone that have progressed from previous exam possibly infectious in nature. Findings could be better assessed on CT exam of the chest. Right lung field remains clear. Pleural spaces: Unremarkable. No pleural effusion. No pneumothorax. Heart/Mediastinum: Unremarkable. No cardiomegaly. Bones/joints: Unremarkable for age. IMPRESSION: 1. Volume loss left hemithorax with stable irregular shaped confluent opacity adjacent to the aortic knob presumed represent site of patient's known lung cancer. 2. Scattered streaky opacities left mid lung zone progressed from previous exam possibly infectious in nature.
[2022-07-26 17:22] LABS: Coronavirus 19, PCR Not Detected (NotDetected); Influenza A, PCR Not Detected (NotDetected); Influenza B, PCR Not Detected (NotDetected)
--- NOTE | 2022-07-26 17:37 | PC.NURSE ---
Pt attempting PO Gatorade
--- NOTE | 2022-07-26 17:45 | PC.NURSE ---
XR at bedside.
--- NOTE | 2022-07-26 17:52 | PC.NURSE ---
notified of continued headache despite Tylenol. New orders being received.
--- NOTE | 2022-07-26 17:56 | ECG_ITS ---
APPROVED REPORT Exam: Resting ECG HR:120 bpm ECG Measurements Heart Rate 120 AXES NC 149 P 85 QRSd 84 QRS 92 QT 298 T 87 QTc 369 Conclusion SINUS TACHYCARDIA BORDERLINE RIGHT AXIS DEVIATION [QRS AXIS > 90] ABNORMAL RHYTHM ECG UNCONFIRMED REPORT Electronically signed by : Ted Carlson MD 07/27/2022 15:40:29
[2022-07-26 18:23] LABS: Basophils % 0.1 % (0.1-2.0); Eosinophils # 0.1 K/mm3 (0.0-0.4); Eosinophils % 0.3 % (0.1-12.0); Hematocrit 41.1 % (42.0-52.0); Hemoglobin 13.4 g/dL (14.1-18.0); Lymphocytes # 0.8 K/mm3 (0.7-4.5); Lymphocytes % 3.9 % (10-50); Mean Corpuscular HGB Conc 32.6 g/dL (31.8-35.4); Mean Platelet Volume 8.3 fl (7.4-10.4); Monocytes # 0.7 K/mm3 (0.1-1.0); Monocytes % 3.2 % (1.7-9.3); Neutrophils # 19.5 K/mm3 (1.8-7.8); Neutrophils % 92.4 % (37.0-80.0); Platelet Count 322 K/mm3 (142-424); Red Blood Count 4.62 M/mm3 (4.60-6.20); Red Cell Distribution Width 14.4 % (11.5-17.5); White Blood Count 21.1 K/mm3 (4.8-10.8)
[2022-07-26 18:26] LABS: MANUAL DIFFERENTIAL MANUAL DIFFERENTIAL (MANUAL DIFF)
[2022-07-26 18:40] LABS: Chloride 100 mmol/L (98-107); Potassium 4.3 mmoL/L (3.5-5.1); Sodium 130 mmol/L (136-145)
[2022-07-26 18:41] LABS: Lactic Acid 1.5 mmol/L (0.7-2.1); Lymphocytes % 5 % (10-50); Neutrophils % 95 % (42-76); Total Cells Counted 100
[2022-07-26 18:42] LABS: Alanine Aminotransferase 31 U/L (12-78); Aspartate Amino Transferase 47 U/L (17-59); Blood Urea Nitrogen 13 mg/dl (9-20); Creatinine Clearance Estimated 70 mL/min (50-200); Estimated Glomerular Filt Rate 84 ml/min (>60); GFR (African American) 102 ML/MIN (>60); Platelet Estimate Normal; RBC Morphology Normal
[2022-07-26 18:43] LABS: Albumin Level 3.5 g/dl (3.5-5.0); Albumin/Globulin Ratio 1.1 (1.1-1.8); Alkaline Phosphatase 80 U/L (38-126); Anion Gap 10.3 mEq/L (5-15); Bilirubin,Total 0.5 mg/dl (0.2-1.3); Calcium 8.9 mg/dl (8.4-10.2); Carbon Dioxide 24 mmol/L (22.0-30.0); Globulin 3.1 g/dL (1.3-3.2); Glucose 157 mg/dl (74-100); Total Protein,Serum 6.6 g/dl (6.3-8.2)
--- NOTE | 2022-07-26 18:51 | CT_ITS ---
PROCEDURE INFORMATION: Exam: CTA Chest With Contrast Exam date and time: 07/26/2022 7:03 PM Age: 66 years old Clinical indication: Other: Hypoxia; Additional info: Tachycardia with moderate hypoxia and lung cancer TECHNIQUE: Imaging protocol: Computed tomographic angiography of the chest with contrast. 3D rendering (Not supervised by radiologist): MIP and/or 3D reconstructed images were created by the technologist. Radiation optimization: All CT scans at this facility use at least one of these dose optimization techniques: automated exposure control; mA and/or kV adjustment per patient size (includes targeted exams where dose is matched to clinical indication); or iterative reconstruction. Contrast material: ISOVUE 370; Contrast volume: 70 ml; Contrast route: INTRAVENOUS (IV); REPORTING DATA: Count of CT and Cardiac NM exams in prior 12 months: This patient has received 2 known CTs and 0 known cardiac nuclear medicine studies in the 12 months prior to the current study. COMPARISON: CT ANGIO CHEST PE PROTOCOL 01/21/2022 2:[address] 03/22/2022 FINDINGS: Pulmonary arteries: Normal. No pulmonary emboli. Aorta: Unremarkable. No aortic aneurysm. No aortic dissection. Lungs: Masslike opacity in the posterior aspect of the left upper lobe adjacent to the major fissure has decreased in size with a small residual bandlike opacity measuring 2.1 by 0.4 cm that previously measured 3.4 by 1.4 cm. A small thin-walled cavity measuring 1.2 cm also noted in this area that has developed in the interval. Interval development of consolidation along the inferior medial left upper lobe extending from the hilum superiorly and increased pleural thickening along the anterolateral left upper lobe as well as some increased volume loss of the left upper lobe. All these findings are felt to be posttreatment related changes. Interval development of multifocal patchy airspace opacities throughout a large portion of the left lower lobe suggesting pneumonia. Focal wedge-shaped bandlike opacity seen in the posterior superior aspect of the left lower lobe likely scarring. Interval development of mild patchy reticulonodular opacities scattered throughout the posterolateral right upper lobe and mild patchy ground-glass opacities in the central and posterior right lower lobe likely postinfectious as well. Lung angel otherwise clear. Pleural spaces: Small left pleural effusion with some interval increase. Heart: Unremarkable. No cardiomegaly. No pericardial effusion. Coronary arteries: Coronary artery calcifications are noted. Mediastinal space: Diffuse moderate to severe wall thickening of the esophagus noted that has worsened in the interval. Lymph nodes: Unremarkable. No enlarged lymph nodes. Spleen: Interval development of a sizable wedge-shaped defect in the superior lateral anterior spleen suggesting old infarct. Upper abdomen viscera otherwise unremarkable. Bones/joints: Unremarkable. No acute fracture. Soft tissues: See Spleen finding. IMPRESSION: 1. No evident PE. 2. Interval development of fairly extensive multifocal patchy opacities throughout a sizable portion of the left lower lobe suggesting pneumonia. Interval development of mild patchy reticulonodular opacities in the right upper lobe and mild subtle ground-glass opacities in the right lower lobe that may also be infectious or inflammatory. 3. Diffuse [id number] thickening of the esophagus with interval worsening that may reflect esophagitis possibly related to prior radiation therapy and can be correlated clinically. 4. Interval decrease in the posterior left upper lobe subple
--- NOTE | 2022-07-26 19:56 | PC.NURSE ---
Pt sat up on side of bed to obtain urine sample. No other needs voiced at this time. Call light within reach.
[2022-07-26 19:59] LABS: Microscopic, Urine URINE MICROSCOPIC (MICROSCOPIC)
[2022-07-26 20:02] LABS: Appearance,Urine CLEAR (Clear); Bilirubin,Urine Negative (Negative); Blood, Urine Negative (Negative); Color,Urine YELLOW (Yellow); Glucose,Urine (UA) Negative (Negative); Ketones,Urine Negative (Negative); Leukocyte Esterase,Urine Negative (Negative); Nitrate,Urine Negative (Negative); Protein,Urine Negative (Negative); Specific Gravity, Urine 1.015 (1.005-1.030); Urobilinogen,Urine 0.2 EU/dl (0.2)
[2022-07-26 20:30] LABS: WBC,Urine Occasional #/hpf (0-3)
== END 2022-07-26 21:43 | disposition home or self-care (01) ==
PROVIDERS: Emergency Provider Emergency Medicine; PCP Family Medicine
DX: J18.9 Pneumonia, unspecified organism (principal); C34.90 Malignant neoplasm of unspecified part of unspecified bronchus or lung; F17.200 Nicotine dependence, unspecified, uncomplicated
CPT/HCPCS: 71045; 71275; 80053; 81001; 83605; 85007; 85025; 87040; 93005; 99285; C9803; J0456; J0696; Q9967; U0003; U0005

== ENCOUNTER → 2022-08-07 10:20 | Outpatient (CLI) | payer MEDICARE, SELFPAY ==
--- NOTE | 2022-08-07 10:34 | XR_ITS ---
FINAL REPORT TECHNIQUE: Chest PA & Lateral CLINICAL HISTORY: PNEUMONIA COMPARISON: 07/26/2022 FINDINGS: 2 views of the chest were performed. The heart size is normal. There is volume loss in the left hemithorax. There is abnormal opacity at the left apex. Left hilum is superiorly retracted. These findings are all stable. The right lung is clear. There are no pleural effusions. There is no pneumothorax. The bony thorax appears intact. IMPRESSION: Stable chest exam. Reviewed, Interpreted and Dictated by Ignacio Ramires MD Transcribed by Henrietta Gutierrez Authenticated and [facility]
[2022-08-07 10:55] LABS: Basophils # 0.1 K/mm3 (0-0.2); Basophils % 1.3 % (0.1-2.0); Eosinophils # 0.4 K/mm3 (0.0-0.4); Eosinophils % 5.1 % (0.1-12.0); Hematocrit 46.4 % (42.0-52.0); Hemoglobin 14.7 g/dL (14.1-18.0); Lymphocytes # 1.9 K/mm3 (0.7-4.5); Lymphocytes % 27.2 % (10-50); Mean Corpuscular HGB Conc 31.7 g/dL (31.8-35.4); Mean Corpuscular Hemoglobin 28.7 pg (27.0-31.2); Mean Corpuscular Volume 90.6 fl (80-94); Mean Platelet Volume 7.8 fl (7.4-10.4); Monocytes # 0.4 K/mm3 (0.1-1.0); Monocytes % 5.1 % (1.7-9.3); Neutrophils # 4.2 K/mm3 (1.8-7.8); Neutrophils % 61.3 % (37.0-80.0); Platelet Count 442 K/mm3 (142-424); Red Blood Count 5.12 M/mm3 (4.60-6.20); Red Cell Distribution Width 14.2 % (11.5-17.5); White Blood Count 6.9 K/mm3 (4.8-10.8)
== END ==
PROVIDERS: PCP Family Medicine; Visit Provider Family Medicine
DX: J18.9 Pneumonia, unspecified organism (principal)
CPT/HCPCS: 36415; 71046; 85025

== ENCOUNTER → 2022-08-12 07:45 | Outpatient (CLI) | payer MEDICARE, SELFPAY ==
--- NOTE | 2022-08-12 07:51 | CT_ITS ---
FINAL REPORT CLINICAL HISTORY: LUNG CANCER, recent dx. patient states hes had chemo COMPARISON: 07/26/2022, 03/22/2022 FINDINGS: CT CHEST WITHOUT AND WITH CONTRAST There is no axillary, mediastinal, or hilar adenopathy. There has been near complete resolution of left lower lobe pneumonia since the prior exam. Chronic changes are seen in the left upper lobe. No discrete pulmonary nodule is identified. There is stable left pleural scarring. There is near complete resolution of a left pleural effusion. Chronic scarring is seen in the right upper lobe. There is long segment wall thickening of the esophagus which may be related to esophagitis. This is improved as compared to the prior exam. IMPRESSION: Near complete resolution of left lower lobe pneumonia. Chronic post treatment changes in the left lung. Reviewed, Interpreted and Dictated by Gigi Moreira MD Transcribed by Ana Martino Authenticated and [facility]
--- NOTE | 2022-08-12 07:51 | CT_ITS ---
FINAL REPORT TECHNIQUE: Axial CT of the abdomen and pelvis, without and with IV contrast. CLINICAL HISTORY: LUNG CANCER, recent dx of lung cancer. FINDINGS: Abdomen: Liver has an unremarkable CT appearance. The gallbladder is contracted. A cleft is seen within the spleen which could be congenital or related to old infarct or trauma. The pancreas and adrenal glands are unremarkable. Precontrast imaging shows no renal stone disease. Postcontrast imaging of the kidneys shows no obstruction. There is a subcentimeter hypodense lesion in the left kidney which is likely a cyst. No bowel obstruction or fluid collection is seen. 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 Pelvis: The appendix is not visualized. There is mild sigmoid diverticulosis. No fluid collection or adenopathy is seen. IMPRESSION: No evidence of metastatic disease to the abdomen or pelvis. Reviewed, Interpreted and Dictated by Gigi Moreira MD Transcribed by Ana Martino Authenticated and [facility]
== END ==
PROVIDERS: PCP Family Medicine; Visit Provider Internal Medicine Medical Oncology
DX: C34.90 Malignant neoplasm of unspecified part of unspecified bronchus or lung (principal)
CPT/HCPCS: 71270; 74178; Q9967

== ENCOUNTER 2022-08-22 09:45 | Outpatient (CLI) | payer MEDICARE, SELFPAY ==
[2022-08-22 10:02] VITALS: BMI 24.0
[2022-08-22 10:23] LABS: Basophils # 0.1 K/mm3 (0-0.2); Basophils % 0.9 % (0.1-2.0); Eosinophils # 0.3 K/mm3 (0.0-0.4); Eosinophils % 4.7 % (0.1-12.0); Hematocrit 40.2 % (42.0-52.0); Hemoglobin 13.2 g/dL (14.1-18.0); Lymphocytes # 1.7 K/mm3 (0.7-4.5); Lymphocytes % 28.9 % (10-50); Mean Corpuscular HGB Conc 32.8 g/dL (31.8-35.4); Mean Corpuscular Volume 88.5 fl (80-94); Mean Platelet Volume 8.3 fl (7.4-10.4); Monocytes # 0.4 K/mm3 (0.1-1.0); Monocytes % 7.1 % (1.7-9.3); Neutrophils # 3.4 K/mm3 (1.8-7.8); Neutrophils % 58.4 % (37.0-80.0); Platelet Count 331 K/mm3 (142-424); Red Blood Count 4.54 M/mm3 (4.60-6.20); Red Cell Distribution Width 14.3 % (11.5-17.5); White Blood Count 5.8 K/mm3 (4.8-10.8)
[2022-08-22 10:25] LABS: Alanine Aminotransferase 28 U/L (12-78); Albumin Level 3.2 g/dl (3.5-5.0); Alkaline Phosphatase 92 U/L (38-126); Anion Gap 12.9 mEq/L (5-15); Aspartate Amino Transferase 43 U/L (17-59); Bilirubin,Total 0.3 mg/dl (0.2-1.3); Blood Urea Nitrogen 11 mg/dl (9-20); Calcium 8.4 mg/dl (8.4-10.2); Carbon Dioxide 28 mmol/L (22.0-30.0); Chloride 95 mmol/L (98-107); Creatinine Clearance Estimated 69 mL/min (50-200); Estimated Glomerular Filt Rate 97 ml/min (>60); GFR (African American) 117 ML/MIN (>60); Globulin 3.1 g/dL (1.3-3.2); Glucose 97 mg/dl (74-100); Potassium 3.9 mmoL/L (3.5-5.1); Sodium 132 mmol/L (136-145); Total Protein,Serum 6.3 g/dl (6.3-8.2)
[2022-08-22 10:56] LABS: Thyroid Stimulating Hormone 2.46 uIU/mL (0.465-4.68)
[2022-08-22 12:11] VITALS: BP 153/83; PULSE 74; RESP 18; TEMP 36.3; O2SAT 99
[2022-08-22 13:25] VITALS: BP 128/78; PULSE 76; RESP 18; O2SAT 99
[2022-08-23 15:04] LABS: Adrenocorticotropic Hormone 10.2 pg/mL (7.2-63.3)
== END 2022-08-22 13:25 | disposition home or self-care (01) ==
LOC: INF 09:46
PROVIDERS: PCP Family Medicine; Visit Provider Internal Medicine Medical Oncology
DX: C34.92 Malignant neoplasm of unspecified part of left bronchus or lung (principal); Z79.899 Other long term (current) drug therapy
CPT/HCPCS: 80053; 82024; 82533; 84443; 85025; 96413; J9173

== ENCOUNTER 2022-09-20 09:44 | Outpatient (CLI) | payer MEDICARE, SELFPAY ==
[2022-09-20 09:46] VITALS: BMI 24.3
[2022-09-20 10:23] LABS: Basophils # 0.1 K/mm3 (0-0.2); Basophils % 0.7 % (0.1-2.0); Eosinophils # 0.3 K/mm3 (0.0-0.4); Eosinophils % 4.3 % (0.1-12.0); Hematocrit 40.4 % (42.0-52.0); Hemoglobin 12.6 g/dL (14.1-18.0); Lymphocytes % 26.9 % (10-50); Mean Corpuscular HGB Conc 31.2 g/dL (31.8-35.4); Mean Corpuscular Hemoglobin 27.2 pg (27.0-31.2); Mean Corpuscular Volume 87.3 fl (80-94); Mean Platelet Volume 7.5 fl (7.4-10.4); Monocytes # 0.6 K/mm3 (0.1-1.0); Monocytes % 7.9 % (1.7-9.3); Neutrophils # 4.5 K/mm3 (1.8-7.8); Neutrophils % 60.3 % (37.0-80.0); Platelet Count 467 K/mm3 (142-424); Red Blood Count 4.63 M/mm3 (4.60-6.20); Red Cell Distribution Width 14.1 % (11.5-17.5); White Blood Count 7.4 K/mm3 (4.8-10.8)
[2022-09-20 10:30] LABS: Alanine Aminotransferase 24 U/L (12-78); Albumin Level 3.2 g/dl (3.5-5.0); Albumin/Globulin Ratio 0.9 (1.1-1.8); Alkaline Phosphatase 112 U/L (38-126); Aspartate Amino Transferase 39 U/L (17-59); Bilirubin,Total 0.2 mg/dl (0.2-1.3); Blood Urea Nitrogen 10 mg/dl (9-20); Calcium 8.5 mg/dl (8.4-10.2); Carbon Dioxide 29 mmol/L (22.0-30.0); Chloride 96 mmol/L (98-107); Creatinine Clearance Estimated 64 mL/min (50-200); Estimated Glomerular Filt Rate 67 ml/min (>60); GFR (African American) 81 ML/MIN (>60); Globulin 3.4 g/dL (1.3-3.2); Glucose 103 mg/dl (74-100); Sodium 133 mmol/L (136-145); Total Protein,Serum 6.6 g/dl (6.3-8.2)
[2022-09-20 11:21] VITALS: BP 141/72; PULSE 81; RESP 20; TEMP 36.9; O2SAT 97
[2022-09-20 11:55] VITALS: BP 138/76; PULSE 86; RESP 20; O2SAT 98
[2022-09-20 12:25] VITALS: BP 133/75; PULSE 82; RESP 20; O2SAT 97
[2022-09-20 13:00] VITALS: BP 131/75; PULSE 95; RESP 20; O2SAT 97
[2022-09-21 14:21] LABS: Adrenocorticotropic Hormone 34.4 pg/mL (7.2-63.3)
== END 2022-09-20 13:00 | disposition home or self-care (01) ==
LOC: INF 09:46
PROVIDERS: PCP Family Medicine; Visit Provider Internal Medicine Medical Oncology
DX: Z51.11 Encounter for antineoplastic chemotherapy (principal); C34.90 Malignant neoplasm of unspecified part of unspecified bronchus or lung; Z79.899 Other long term (current) drug therapy
CPT/HCPCS: 80053; 82024; 82533; 84443; 85025; 96413; J9173

== ENCOUNTER → 2022-11-26 08:51 | Outpatient (CLI) | payer MEDICARE, SELFPAY ==
[2022-11-26 09:09] LABS: Basophils # 0.1 K/mm3 (0-0.2); Basophils % 0.8 % (0.1-2.0); Eosinophils # 0.4 K/mm3 (0.0-0.4); Eosinophils % 5.3 % (0.1-12.0); Hematocrit 45.6 % (42.0-52.0); Hemoglobin 15.1 g/dL (14.1-18.0); Lymphocytes # 2.4 K/mm3 (0.7-4.5); Lymphocytes % 29.9 % (10-50); Mean Corpuscular HGB Conc 33.2 g/dL (31.8-35.4); Mean Corpuscular Hemoglobin 29.3 pg (27.0-31.2); Mean Corpuscular Volume 88.1 fl (80-94); Mean Platelet Volume 7.7 fl (7.4-10.4); Monocytes # 0.5 K/mm3 (0.1-1.0); Monocytes % 5.8 % (1.7-9.3); Neutrophils # 4.6 K/mm3 (1.8-7.8); Neutrophils % 58.1 % (37.0-80.0); Platelet Count 316 K/mm3 (142-424); Red Blood Count 5.17 M/mm3 (4.60-6.20); Red Cell Distribution Width 15.4 % (11.5-17.5)
[2022-11-26 09:23] LABS: Chloride 102 mmol/L (98-107); Potassium 4.5 mmoL/L (3.5-5.1); Sodium 136 mmol/L (136-145)
[2022-11-26 09:25] LABS: Blood Urea Nitrogen 11 mg/dl (9-20)
[2022-11-26 09:26] LABS: Alanine Aminotransferase 31 U/L (12-78); Albumin Level 3.7 g/dl (3.5-5.0); Alkaline Phosphatase 98 U/L (38-126); Anion Gap 11.5 mEq/L (5-15); Aspartate Amino Transferase 58 U/L (17-59); Bilirubin,Total 0.9 mg/dl (0.2-1.3); Calcium 9.7 mg/dl (8.4-10.2); Carbon Dioxide 27 mmol/L (22.0-30.0); Estimated Glomerular Filt Rate 84 ml/min (>60); GFR (African American) 102 ML/MIN (>60); Globulin 3.8 g/dL (1.3-3.2); Glucose 119 mg/dl (74-100); Total Protein,Serum 7.5 g/dl (6.3-8.2)
--- NOTE | 2022-11-26 09:36 | CT_ITS ---
FINAL REPORT TECHNIQUE: Routine axial images were obtained from the lung apices to below the diaphragm following IV contrast administration. Individualized dose reduction techniques using automated exposure control or adjustment of the mA and/or kV according to the patient size were employed. CLINICAL HISTORY: LUNG CANCER COMPARISON: 08/12/2022 FINDINGS: There has been progressive consolidation and volume loss in the left upper lobe with shift of the mediastinal structures to the left. There is stable scar present in the left lower lobe. The previously noted left lower lobe nodule has resolved since the prior CT. There is a new increased linear density in the posterior right upper lobe and in the right lower lobe, favor inflammatory or post inflammatory. In the right lower lobe this is best seen in axial image #42 of series 4. No pleural or pericardial effusion is seen. No adenopathy or mass lesion is present. IMPRESSION: Progressive consolidation and volume loss in the left upper lobe with shift of mediastinal structures to the left. This may be secondary to postoperative changes, however an underlying mass with proximal airway obstruction cannot be excluded based on this examination. Would consider bronchoscopy if this is a clinical consideration. Stable scar left lower lobe, with the previously noted left lower lobe nodule resolved. New linear densities in the posterior right upper lobe and right lower lobe, favor inflammatory or post inflammatory. Reviewed, Interpreted and Dictated by Ignacio Ramires MD Transcribed by Daysi Braun Authenticated and [facility]
--- NOTE | 2022-11-26 09:36 | CT_ITS ---
FINAL REPORT TECHNIQUE: After the administration of oral and intravenous contrast, axial images were obtained through the abdomen and pelvis by computed tomography. The study was performed with techniques to keep radiation dose as low as reasonably achievable, (ALARA). Individual dose reduction techniques using automated exposure control or adjustment of mA and/or kV according to the patient's size were employed. CLINICAL HISTORY: LUNG CANCER COMPARISON: 08/12/2022 FINDINGS: Abdomen: The lung bases are clear. The liver parenchyma is homogeneous. The gallbladder is present. The spleen, pancreas, adrenals and kidneys appear unremarkable. The aorta is normal in caliber. There is no free fluid or adenopathy. Pelvis: The appendix is normal. The urinary bladder is unremarkable. There is no free fluid or adenopathy. IMPRESSION: No acute intra-abdominal process. Reviewed, Interpreted and Dictated by Ignacio Ramires MD Transcribed by Daysi Braun Authenticated and [facility]
== END ==
PROVIDERS: PCP Family Medicine; Visit Provider Internal Medicine Medical Oncology
DX: C34.90 Malignant neoplasm of unspecified part of unspecified bronchus or lung (principal)
CPT/HCPCS: 36415; 71260; 74177; 80053; 85025; Q9967

== ENCOUNTER → 2022-11-29 08:59 | Outpatient (CLI) | payer MEDICARE, SELFPAY ==
[2022-11-29 10:04] LABS: Basophils # 0.1 K/mm3 (0-0.2); Basophils % 0.6 % (0.1-2.0); Eosinophils # 0.3 K/mm3 (0.0-0.4); Eosinophils % 3.2 % (0.1-12.0); Hematocrit 44.4 % (42.0-52.0); Hemoglobin 14.5 g/dL (14.1-18.0); Lymphocytes # 1.9 K/mm3 (0.7-4.5); Lymphocytes % 25.2 % (10-50); Mean Corpuscular HGB Conc 32.6 g/dL (31.8-35.4); Mean Corpuscular Hemoglobin 29.3 pg (27.0-31.2); Mean Corpuscular Volume 90.1 fl (80-94); Mean Platelet Volume 7.9 fl (7.4-10.4); Monocytes # 0.5 K/mm3 (0.1-1.0); Monocytes % 6.6 % (1.7-9.3); Neutrophils # 4.9 K/mm3 (1.8-7.8); Neutrophils % 64.3 % (37.0-80.0); Platelet Count 344 K/mm3 (142-424); Red Blood Count 4.93 M/mm3 (4.60-6.20); Red Cell Distribution Width 15.6 % (11.5-17.5); White Blood Count 7.7 K/mm3 (4.8-10.8)
[2022-11-29 10:21] LABS: INR 1.02 (0.9-1.1)
[2022-11-29 10:51] LABS: Alanine Aminotransferase 29 U/L (12-78); Albumin Level 3.6 g/dl (3.5-5.0); Albumin/Globulin Ratio 1.1 (1.1-1.8); Alkaline Phosphatase 87 U/L (38-126); Anion Gap 12.4 mEq/L (5-15); Aspartate Amino Transferase 43 U/L (17-59); Bilirubin,Total 0.5 mg/dl (0.2-1.3); Blood Urea Nitrogen 12 mg/dl (9-20); Calcium 9.6 mg/dl (8.4-10.2); Carbon Dioxide 29 mmol/L (22.0-30.0); Chloride 98 mmol/L (98-107); Estimated Glomerular Filt Rate 75 ml/min (>60); GFR (African American) 90 ML/MIN (>60); Globulin 3.4 g/dL (1.3-3.2); Glucose 101 mg/dl (74-100); Potassium 4.4 mmoL/L (3.5-5.1); Sodium 135 mmol/L (136-145)
[2022-11-30 12:15] LABS: Hep A Ab, Total Positive (Negative); Hep B Core Ab, Total Positive (Negative); Hep B Surface Ab, Qual Non Reactive (.)
[2022-12-05 10:49] LABS: HIV Screen 4th Generation wRfx Negative
[2022-12-05 10:51] LABS: Hepatitis B Surface Antigen Positive
[2022-12-05 10:53] LABS: Hepatitis C Antibody REACTIVE
[2022-12-05 10:59] LABS: Fibrosis Stage F0-NO FIBROSIS; Necroinflammat Activity Score 0.1
[2022-12-05 11:01] LABS: Alpha 2-Macroglobulins, Qn 216; Apolipoprotein A-1 159; Haptoglobin 250
[2022-12-05 11:02] LABS: ALT (SGPT) P5P 26; Bilirubin, Total 0.3; GGT 41
== END ==
PROVIDERS: PCP Family Medicine; Visit Provider Nurse Practitioner
DX: B19.20 Unspecified viral hepatitis C without hepatic coma (principal); R13.10 Dysphagia, unspecified; R10.9 Unspecified abdominal pain; Z11.4 Encounter for screening for human immunodeficiency virus [HIV]
CPT/HCPCS: 36415; 80053; 81596; 85025; 85610; 86703; 86704; 86706; 86708; 87340; 87380; 87522; G0432

== ENCOUNTER → 2022-12-06 10:58 | Outpatient (CLI) | payer MEDICARE, SELFPAY ==
--- NOTE | 2022-12-06 11:12 | ECG_ITS ---
APPROVED REPORT Exam: Resting ECG HR:64 bpm ECG Measurements Heart Rate 64 AXES FL 159 P 86 QRSd 90 QRS 84 QT 393 T 59 QTc 402 Conclusion SINUS RHYTHM WITH MARKED SINUS ARRHYTHMIA Isolated Q in III ABNORMAL ECG UNCONFIRMED REPORT Electronically signed by : Ted Carlson MD 12/09/2022 15:57:23
--- NOTE | 2022-12-06 11:31 | CA_ITS ---
APPROVED REPORT EXAM: Comprehensive 2D, Doppler, and color-flow Echocardiogram Dental Hygienist: Jenise Omalley, RT(R) Ht: 5 ft 5 in Wt: 150lbs BSA: 1.75 BP: 153/69 mmHg Indications: Abn EKG, COPD, smoker, ENRIQUEZ 2D Dimensions LVOT 1.86 cm (M/F) 1.5-2.5 LVEF (Pool's) 72.80 % LV Volume 63.30 mL M-Mode Dimensions RVDd 2.59 cm (0.9-2.6) LA Diam 3.28 cm (1.9-4.0) LVDd 4.79 cm (3.5-5.7) Ao Diam 2.73 cm (2.0-3.7) LVDs 3.57 cm (3.5-5.7) IVSd 1.03 cm (0.6-1.1) PWd 0.80 cm (0.6-1.1) EF (Teich) 50.20% FS 25.50% EDV (Teich) 107.00 mL ESV (Teich) 53.30 mL LV Diastology E Decel Time 160.00 (160-240 msec) E/A Ratio 0.79 MED E' 7.90 (< 7 cm/sec) E'/MED E' Ratio 11.25 (>14) LAT E' 7.40 (<10 cm/sec) E/LAT E' Ratio 12.01 (>14) Mitral Valve MV E Max Jose L. 89.00 (40-130 cm/s) MV A Velocity 112.00 (40-130 cm/s) E/A Ratio 0.79 MV Decel. Time 160.00 (160-240 ms) MV PHT 47.00 ms Left Ventricle The left ventricle is normal size. The left ventricular systolic function is normal. The left ventricular ejection fraction is within the normal range. There is increased LV wall thickness. Proximal septal thickening is present. There is normal LV segmental wall motion. Transmitral Doppler flow pattern suggests impaired LV relaxation. LVEF is 55%. Right Ventricle The right ventricle is mildly dilated. The right ventricular systolic function is normal. Atria The left atrium size is normal. The right atrium size is normal. The interatrial septum is not well visualized. Aortic Valve The aortic valve is mildly thickened. There is no aortic valvular stenosis. No aortic regurgitation is present. Mitral Valve The mitral valve is mildly thickened. No evidence of mitral valve stenosis. Trace mitral regurgitation. Tricuspid Valve The tricuspid valve leaflets are thin and pliable. Trace tricuspid regurgitation. There is insufficient TR jet to estimate RVSP. Pulmonic Valve The pulmonary valve is normal in structure. Trace pulmonic regurgitation. Great Vessels The aortic root is normal in size. The ascending aorta is not well visualized. IVC is normal in size and collapses >50% with inspiration. Pericardium There is no pericardial effusion. Other Information Study Quality: Fair Conclusion Normal biventricular systolic function. Mild RV dilation. No significant valvular stenosis or regurgitation. Compared to prior study from 2021, there are no significant changes. Electronically signed by : Airam Godwin, 12/09/2022 16:15:05
== END ==
PROVIDERS: PCP Family Medicine; Visit Provider Nurse Practitioner
DX: R06.02 Shortness of breath (principal); B19.20 Unspecified viral hepatitis C without hepatic coma; R07.9 Chest pain, unspecified
CPT/HCPCS: 87517; 93005; 93306

== ENCOUNTER 2022-12-16 12:18 | Day surgery (SDC) | payer MEDICARE, SELFPAY ==
[2022-12-16] VITALS (10 sets, daily range): BP systolic 99–157; BP diastolic 60–89; PULSE 86–110; RESP 16–18; TEMP 36.1–36.7; O2SAT 92–97; BMI 24.0
[2022-12-16 13:18] LABS: Basophils # 0.1 K/mm3 (0-0.2); Basophils % 0.8 % (0.1-2.0); Eosinophils # 0.2 K/mm3 (0.0-0.4); Eosinophils % 3.2 % (0.1-12.0); Hematocrit 46.8 % (42.0-52.0); Lymphocytes # 2.2 K/mm3 (0.7-4.5); Lymphocytes % 30.7 % (10-50); Mean Corpuscular Hemoglobin 28.6 pg (27.0-31.2); Mean Corpuscular Volume 89.6 fl (80-94); Mean Platelet Volume 7.9 fl (7.4-10.4); Monocytes # 0.5 K/mm3 (0.1-1.0); Monocytes % 6.6 % (1.7-9.3); Neutrophils # 4.1 K/mm3 (1.8-7.8); Neutrophils % 58.8 % (37.0-80.0); Platelet Count 311 K/mm3 (142-424); Red Blood Count 5.22 M/mm3 (4.60-6.20); Red Cell Distribution Width 15.2 % (11.5-17.5); White Blood Count 7.1 K/mm3 (4.8-10.8)
[2022-12-16 13:20] LABS: Chloride 103 mmol/L (98-107); Sodium 138 mmol/L (136-145)
[2022-12-16 13:23] LABS: Blood Urea Nitrogen 11 mg/dl (9-20); Calcium 9.4 mg/dl (8.4-10.2); Carbon Dioxide 26 mmol/L (22.0-30.0); Creatinine Clearance Estimated 69 mL/min (50-200); Estimated Glomerular Filt Rate 75 ml/min (>60); GFR (African American) 90 ML/MIN (>60); Glucose 86 mg/dl (74-100)
--- NOTE | 2022-12-16 13:40 | P.PNANES_ITS ---
[facility] Disclaimer: The information contained in this section may have been updated after the patient was seen, as this information can be updated by other users. 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 infection resolved per labs Hepatitis C Negative titer reported 11/29/22 History of lung or bronchial cancer Lung mass Non-small cell lung cancer Smoking greater than 30 pack years Tobacco abuse Tobacco abuse counseling Surgical History History of skin graft Family History (Updated 12/16/22 @ 12:45 by Chad Bryson RN) Other Family history of cancer Social History (Updated 12/16/22 @ 12:46 by Chad Bryson RN) Smoking Status: Current every day smoker alcohol intake: former substance use type: denies use current occupational status: retired and disabled Travel in the last 8 weeks: None [facility] Anesthesia Checklist Patient Identification Patient Identification: Verbal (Name & ) Structural Data Admitted From: Home Planned Operative Procedure/s: bronchoscopy Consent for Planned Operative Procedure(s) Verified: Yes NPO Status Verified Time NPO: 00:00 Additional verifications Anesthesia Reactions: No Hx Blood Transfusions: Yes Blood Transfusion Reaction: No Airway Assessment Mallampati Score:: Class II C-Spine Mobility Assessed: Yes TMJ Mobility Assessed: Yes Dentition: Good Dentition Neurological Assessment Level of Consciousness: Awake, Alert and Appropriate Anesthesia Plan Anesthesia Risk discussed: Yes Anesthesia Plan: Verified ASA Class: III Anesthesia Type: General
--- NOTE | 2022-12-16 14:56 | XR_ITS ---
FINAL REPORT CLINICAL HISTORY: C-ARM USED FOR BRONCHOSCOPY with biopsies. Dose 20:15mGy Time 0:53 minutes FINDINGS: Fluoroscopy was provided for bronchoscopy. A single spot image was obtained. 0.53 minutes of fluoroscopy time was provided. IMPRESSION: 0.53 minutes of fluoroscopy provided for bronchoscopy. 20.15 mGy Reviewed, Interpreted and Dictated by Micah Verduzco III, MD Transcribed by Michelle Bernstein Authenticated and [facility]
--- NOTE | 2022-12-16 16:03 | EXP.BRONCH.N ---
Procedure: Date: 12/16/22 Patient Date of :: 1955 Procedure Performed:: Bronchoscopy airway examination bronchoalveolar lavage, transbronchial endobronchial biopsy Indications:: Left upper lobe collapse/mass Performing Provider:: Lamont Adams MD Referring Provider:: Dr. Mac Sedation:: General anesthesia Procedure:: Bronchoscopy airway examination bronchoalveolar lavage, transbronchial endobronchial biopsy: A clean DIAGNOSTIC bronchoscopy was advanced through the ET tube and airways were examined up to subsegmental bronchi. Airways appeared grossly normal, no evidence of mucoid secretions, mucous plugging active bleeding/old blood clots noted n the right lung. Left upper lobe bronchi per significant large with only pinhole opening through which bronchoscopy could not be passed beyond. No obvious endobronchial lesions noted to the left upper lobe bronchus contributing to volume loss. This appears more likely to be posttreatment/radiation changes. Airway irregularity noted at the start of the left lower lobe bronchus however the distal airways appear patent. Bronchoalveolar wash was performed in the Left UPPER LOBE with instillation of 60 cc normal saline with return of 25 cc back. BAL fluid was sent for cell count and differential along with bacterial fungal and AFB stain and cultures. Bronchoalveolar lavage was performed in the Right Lower LOBE with instillation of 60 cc normal saline with return of 30 cc back. BAL fluid was sent for cell count and differential along with bacterial fungal and AFB stain and cultures. Transbronchial biopsy was was attempted in the left upper lobe. Biopsy forceps could not be advanced beyond 2 to 3 cm from the start of the left upper lobe bronchus into the pinhole. Transbronchial biopsies were performed. Total of 5 biopsies were performed and were were sent in formalin for cytopathologic examination. Endobronchial biopsies were also performed at the irregularities noted at the start of the left lower lobe bronchus and also in the bronchus intermedius and were sent separately in formalin for cytopathologic examination Patient tolerated the procedure with no immediate acute complications. We will follow the patient in pulmonary clinic in 7 to 10 days. Findings:: Please see the procedure note Recommendations:: Postoperative bronchoscopy instructions. Follow in pulmonary clinic in 5 to 7 days Complications:: No acute immediate complication Estimated blood obtained (mL): 5
--- NOTE | 2022-12-16 16:05 | P.PNANES_ITS ---
[facility] Anesthesia Record Part I Anesthesia Record I Intake, IV Amount: 800 Hydration: Adequate Estimated blood loss (mL): 0 Urine output (mL): 0 Blood Products used (#): none Blood Pressure: 131/78 SaO2: 94 Pulse Rate: 110 Airway Patency: Patent Respiratory Rate: 16 Temperature: 97.1 F Patient is:: Drowsy and Stable Stable to PACU at:: 16:00
--- NOTE | 2022-12-16 16:23 | XR_ITS ---
PROCEDURE INFORMATION: Exam: XR Chest Exam date and time: 12/16/2022 4:56 PM Age: 66 years old Clinical indication: Cough; Additional info: Post op bronch TECHNIQUE: Imaging protocol: Radiologic exam of the chest. Views: 1 view. COMPARISON: SD XR CHEST AP 12/16/2022 2:45 PM FINDINGS: Lungs: There is now complete left upper lobe atelectasis. There is partial left lower lobe atelectasis with stable infiltrate in the superior segment of the left lower lobe. Right lung appears clear. Pleural spaces: Unremarkable. No pleural effusion. No pneumothorax. Heart/Mediastinum: Unremarkable. No cardiomegaly. Bones/joints: Unremarkable. IMPRESSION: Left lung atelectasis and infiltrate as described, with atelectasis worsened the prior study. No pneumothorax.
--- NOTE | 2022-12-17 07:22 | P.PNANES_ITS ---
[facility] Anesthesia Record Part II Anesthesia Record Part II Discharge Time: 16:30 Destination: Surgical Day Care (OP Surgery) PACU nurse assessment reviewed?: Yes Patient Condition:: Good Anesthesia Complications:: None Swallowing reflex intact?: Yes Airway Patency: Patent Cyanosis?: No Blood Pressure: 137/81 SaO2: 95 Respiratory Rate: 16 Pulse Rate: 101 Temperature: 97.9 F Mental Status: Alert & Oriented Pain level:: 0 Nausea and/or vomitting:: None Intake, IV Amount: 0 Hydration: Adequate
[2022-12-17 07:23] VITALS: BP 137/81; PULSE 101; RESP 16; TEMP 36.6; O2SAT 95
== END 2022-12-16 16:53 | disposition home or self-care (01) ==
PROVIDERS: PCP Family Medicine; Visit Provider Internal Medicine Pulmonary Disease
PROC: (CPT 31624; principal; 2022-12-16 13:00)
DX: J98.19 Other pulmonary collapse (principal); R91.8 Other nonspecific abnormal finding of lung field
CPT/HCPCS: 31624; 31628; 71045; 76000; 80048; 85025; 87070; 87102; 87116; 87186; 87205; 87206; 88112; 88305; 89051; J2405

== ENCOUNTER 2023-02-20 11:20 | Day surgery (SDC) | payer MEDICARE, SELFPAY ==
[2023-02-18 13:55] VITALS: BMI 25.0
[2023-02-20 11:41] VITALS: BP 122/60; PULSE 76; RESP 18; TEMP 36.7; O2SAT 98
--- NOTE | 2023-02-20 11:57 | EXP.ANES.CKL ---
[facility] Disclaimer: The information contained in this section may have been updated after the patient was seen, as this information can be updated by other users. 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 Hepatitis A infection Hepatitis C History of lung or bronchial cancer Lung mass Non-small cell lung cancer Smoking greater than 30 pack years Tobacco abuse Tobacco abuse counseling Surgical History History of bronchoscopy History of skin graft Family History Other Family history of cancer Social History Smoking Status: Current every day smoker alcohol intake: former substance use type: denies use current occupational status: retired and disabled Travel in the last 8 weeks: None [facility] Anesthesia Checklist Patient Identification Patient Identification: Arm Band and Verbal (Name & ) Structural Data Admitted From: Home Planned Operative Procedure/s: Colonoscopy Consent for Planned Operative Procedure(s) Verified: Yes NPO Status Verified Time NPO: 00:00 Additional verifications Anesthesia Reactions: No Hx Blood Transfusions: Yes Blood Transfusion Reaction: No Airway Assessment Mallampati Score:: Class II C-Spine Mobility Assessed: Yes TMJ Mobility Assessed: Yes Dentition: Poor Dentition Neurological Assessment Level of Consciousness: Awake Hx Seizures: No Numbness or tingling in extremities: No Anesthesia Plan Anesthesia Risk discussed: Yes Anesthesia Plan: Verified ASA Class: III Anesthesia Type: MAC
[2023-02-20 12:04] VITALS: O2SAT 98
[2023-02-20 12:17] VITALS: BP 94/41; PULSE 98; RESP 16; TEMP 36.6; O2SAT 97
[2023-02-20 12:27] VITALS: BP 84/52; PULSE 91; RESP 16; O2SAT 96
--- NOTE | 2023-02-20 12:33 | HMH.SCOPE ---
Procedure: Date: 02/20/23 Patient Date of :: 1955 Procedure Performed:: EGD and dilation Indications:: Dysphagia Performing Provider:: Silvia Qureshi MD Referring Provider:: Montse Qureshi APRN Sedation:: Propofol Procedure:: The gastroscope was gently passed through the incisoral orifice into the oral cavity and under direct visualization the esophagus was intubated. The endoscope was passed down the esophagus, through the stomach, and into the duodenum. Color, texture, mucosa, and anatomy of the esophagus, stomach, and duodenum were carefully examined with the scope. Findings:: Oropharynx: normal Esophagus: Long segment barretts up to 1/2 length of the esophagus, biopsied, 58F bougie dilation performe EG Junction: intact at 40 cm Cardia: normal Fundus: normal Body: normal Antrum: normal Duodenal bulb: normal Duodenum (second and third portion): normal Impression: Dysphagia treated with bougie dilation Barretts esophagus Recommendations:: Repeat EGD and dilation in about THREE years or so. Maintain on daily PPI therapy. Complications:: None Estimated blood obtained (mL): 0 Colonoscopy Component Colonoscopy Component Was a colonoscopy performed during today's procedure?: No
[2023-02-20 12:37] VITALS: BP 108/64; PULSE 88; RESP 18; O2SAT 96
[2023-02-20 12:47] VITALS: BP 107/64; PULSE 76; RESP 18; O2SAT 99
== END 2023-02-20 13:00 | disposition home or self-care (01) ==
PROVIDERS: PCP Family Medicine; Visit Provider Internal Medicine Gastroenterology
PROC: 0DJ08ZZ Inspection of Upper Intestinal Tract, Via Natural or Artificial Opening Endoscopic (ICD-10-PCS; CPT 43235; principal; 2023-02-20 12:30)
DX: K22.70 Barrett's esophagus without dysplasia (principal); R13.10 Dysphagia, unspecified
CPT/HCPCS: 43239; 43248; 88305

== ENCOUNTER → 2023-03-12 13:26 | Outpatient (CLI) | payer MEDICARE, SELFPAY ==
--- NOTE | 2023-03-12 13:34 | CT_ITS ---
FINAL REPORT CLINICAL HISTORY: 3 month follow up, known lung cancer COMPARISON: 11/26/2022 FINDINGS: Axial CT images of the chest were obtained with contrast. Coronal reformatted images were also obtained. This study was performed with techniques to keep radiation doses as low as reasonably achievable, (ALARA). Individualized dose reduction techniques using automated exposure control or adjustment of mA and/or KV according to the patient''''s size were employed. There is no evidence of mediastinal or hilar mass or adenopathy.No axillary mass or adenopathy is identified. On lung window images, there is a persistent left upper thorax consolidation which is stable and favored to be post treatment change. Underlying neoplasm not excluded. There are persistent bilateral areas of scar. There are worsening multifocal pulmonary opacities involving the right lobe of uncertain etiology. Infectious/inflammatory etiology is favored but some areas appear more nodular and neoplastic involvement is not excluded. Limited images of the upper abdomen are unremarkable. IMPRESSION: Stable left upper thorax consolidation. Worsening multifocal right lung opacities favor inflammatory but neoplasm not excluded. Recommend follow-up chest CT or PET-CT. Reviewed, Interpreted and Dictated by Micah Verduzco III, MD Transcribed by Henrietta Gutierrez Authenticated and [facility]
[2023-03-12 13:49] LABS: Blood Urea Nitrogen 9 mg/dl (9-20); Estimated Glomerular Filt Rate 75 ml/min (>60); GFR (African American) 90 ML/MIN (>60)
== END ==
PROVIDERS: PCP Family Medicine; Visit Provider Internal Medicine Medical Oncology
DX: C34.92 Malignant neoplasm of unspecified part of left bronchus or lung (principal)
CPT/HCPCS: 36415; 71260; 82565; 84520; Q9967

== ENCOUNTER → 2023-03-26 08:04 | Outpatient (CLI) | payer MEDICARE, SELFPAY ==
[2023-03-26 09:25] VITALS: PULSE 109; PULSE 112
[2023-03-26] MEDS: ALBUTEROL 0.083% 2.5 MG/3 ML NEB IH (09:25)
== END ==
LOC: RT 08:05
PROVIDERS: PCP Family Medicine; Visit Provider Internal Medicine Pulmonary Disease
DX: R06.09 Other forms of dyspnea (principal)
CPT/HCPCS: 94060; 94618; 94640; 94726; 94729

== ENCOUNTER → 2023-03-26 13:05 | Outpatient (CLI) | payer MEDICARE, SELFPAY ==
[2023-03-26 11:45] LABS: C-Reactive Protein 9.3 mg/L (0-4)
[2023-03-29 16:01] LABS: Aspergillus flavus Negative (Neg:<1:1); Aspergillus fumigatus Negative (Neg:<1:1); Aspergillus niger Negative (Neg:<1:1); Blastomyces Antibody Negative (Neg:<1:1); Histoplasma Antibody Quant Negative (Neg:<1:1)
[2023-03-31 11:32] LABS: Aspergillus Antigen, BAL/Serum 0.05 Index (0.00-0.49)
[2023-04-01 15:10] LABS: PDF: SCANNED IMAGE
== END ==
LOC: LAB.DROPOF 04-02 13:05
PROVIDERS: PCP Internal Medicine Pulmonary Disease; Visit Provider Internal Medicine Pulmonary Disease
DX: J98.4 Other disorders of lung; B44.9 Aspergillosis, unspecified; R06.09 Other forms of dyspnea; J84.10 Pulmonary fibrosis, unspecified; Z72.0 Tobacco use; R91.8 Other nonspecific abnormal finding of lung field; R79.82 Elevated C-reactive protein (CRP)
CPT/HCPCS: 36415; 86140; 86606; 86612; 86698; 87305; 87449

== ENCOUNTER 2023-05-29 07:42 | Outpatient (CLI) | payer MEDICARE, SELFPAY ==
--- NOTE | 2023-05-29 07:43 | US_ITS ---
FINAL REPORT CLINICAL HISTORY: 6 mo fu hep B infection COMPARISON: None FINDINGS: Sonographic images of the right upper quadrant were obtained. The pancreas is partially obscured.The liver has an unremarkable appearance, although slightly inhomogeneous. Trace sludge is present in the gallbladder without evidence of gallstones. There is no evidence of biliary ductal dilatation.The common duct measures 3 mm. Limited images of the right kidney are unremarkable. IMPRESSION: Slight inhomogeneous echotexture of the liver, otherwise unremarkable. Trace sludge present in the gallbladder. Reviewed, Interpreted and Dictated by Ignacio Ramires MD Transcribed by Daysi Braun Authenticated and [facility]
== END 2023-05-29 23:59 ==
LOC: RAD 07:43
PROVIDERS: PCP Family Medicine; Visit Provider Nurse Practitioner
DX: B19.10 Unspecified viral hepatitis B without hepatic coma (principal)
CPT/HCPCS: 76705

== ENCOUNTER 2023-06-16 09:27 | Outpatient (CLI) | payer MEDICARE, SELFPAY ==
--- NOTE | 2023-06-16 09:28 | US_ITS ---
FINAL REPORT CLINICAL HISTORY: eval liver quality - active hep b COMPARISON: 05/29/2023 FINDINGS: Sonographic images of the right upper quadrant were obtained. The pancreas is partially obscured. There is a coarse hepatic echotexture with nodularity of the liver contours worrisome for cirrhosis. No hepatic masses identified. The portal vein measures at the upper limits of normal at 13 mm. The gallbladder appears normal without evidence of gallstones.There is no evidence of biliary ductal dilatation.The common duct measures 3 mm. Limited images of the right kidney are unremarkable. IMPRESSION: Findings worrisome for cirrhosis. Reviewed, Interpreted and Dictated by Micah Verduzco III, MD Transcribed by Ana Martino Authenticated and [facility]
== END 2023-06-16 23:59 ==
LOC: RAD 09:28
PROVIDERS: PCP Family Medicine; Visit Provider Nurse Practitioner
DX: B18.1 Chronic viral hepatitis B without delta-agent (principal); B19.10 Unspecified viral hepatitis B without hepatic coma
CPT/HCPCS: 76705

== ENCOUNTER 2023-06-17 14:38 | Outpatient (CLI) | payer MEDICARE, SELFPAY ==
[2023-06-17 15:35] LABS: Alanine Aminotransferase 14 U/L (12-78); Albumin Level 3.9 g/dl (3.5-5.0); Alkaline Phosphatase 76 U/L (38-126); Aspartate Amino Transferase 38 U/L (17-59); Bilirubin,Direct 0.4 mg/dl (0.0-0.4); Bilirubin,Indirect 0.1 mg/dL (0.0-0.9); Bilirubin,Total 0.5 mg/dl (0.2-1.3); Bilirubin,Unconjugated 0.1 mg/dL (0.0-1.1); Total Protein,Serum 6.9 g/dl (6.3-8.2)
[2023-06-18 12:16] LABS: AFP, Tumor Marker 3.4 ng/mL (0.0-8.4)
[2023-06-19 16:28] LABS: HBV IU/mL 490 IU/mL (.)
== END 2023-06-17 23:59 ==
LOC: LAB 14:39
PROVIDERS: PCP Family Medicine; Visit Provider Nurse Practitioner
DX: B18.1 Chronic viral hepatitis B without delta-agent (principal); Z85.118 Personal history of other malignant neoplasm of bronchus and lung; K22.70 Barrett's esophagus without dysplasia; B19.10 Unspecified viral hepatitis B without hepatic coma; Z72.0 Tobacco use
CPT/HCPCS: 36415; 80076; 82105; 87517

== ENCOUNTER 2023-06-24 10:39 | Outpatient (CLI) | payer MEDICARE, SELFPAY ==
--- NOTE | 2023-06-24 10:40 | CT_ITS ---
FINAL REPORT TECHNIQUE: Axial imaging of the chest was obtained without contrast. Reformatted images were also obtained and reviewed.This study was performed with techniques to keep radiation doses as low as reasonably achievable, (ALARA). Individualized dose reduction technique using automated exposure control or adjustment of mA and/or kV according to the patient's size were employed. CLINICAL HISTORY: RLL nodule 3 mth F/U COMPARISON: 03/12/2023 FINDINGS: There is diffuse esophageal wall thickening which is nonspecific, favor inflammatory. There is no axillary adenopathy. There is no hilar or mediastinal mass or adenopathy. Heart size is normal. There is no pericardial or pleural effusion. Limited images of the upper abdomen are unremarkable. There is left upper lobe consolidation. There has been significant interval improvement in inferior right lung opacities many of which have resolved. Multifocal, mild opacities persist in the right lung. There is a stable anterior left upper lobe opacity. No new mass or consolidation is seen. IMPRESSION: Overall stable left lung opacities with significant improvement of right lung opacities, likely inflammatory. Reviewed, Interpreted and Dictated by Micah Verduzco III, MD Transcribed by Michelle Bernstein Authenticated and [facility]
== END 2023-06-24 23:59 ==
LOC: RAD 10:40
PROVIDERS: PCP Family Medicine; Visit Provider Internal Medicine Pulmonary Disease
DX: R91.8 Other nonspecific abnormal finding of lung field (principal)
CPT/HCPCS: 71250

== ENCOUNTER 2023-12-04 07:43 | Outpatient (CLI) | payer MEDICARE, SELFPAY ==
--- NOTE | 2023-12-04 07:44 | US_ITS ---
FINAL REPORT CLINICAL HISTORY: liver f/u eval COMPARISON: None FINDINGS: HEPATIC ULTRASOUND Multiple transverse and longitudinal scans were performed of the right upper quadrant of the abdomen. The liver has a coarsened echotexture which may be due to fatty infiltration. There is no diffuse nodularity. No intrahepatic duct dilatation is identified. No evidence of common bile duct dilatation is identified. Doppler exam shows normal directional flow within patent hepatic and portal veins. No gallstones are seen. No evidence of ascites. IMPRESSION: Coarsened echotexture of the liver. Reviewed, Interpreted and Dictated by Ignacio Ramires MD Transcribed by Henrietta Gutierrez Authenticated and [facility]
== END 2023-12-04 23:59 | disposition home or self-care (01) ==
LOC: RAD 07:44
PROVIDERS: PCP Family Medicine; Visit Provider Nurse Practitioner
DX: B19.10 Unspecified viral hepatitis B without hepatic coma (principal)
CPT/HCPCS: 76705

== ENCOUNTER 2023-12-12 12:23 | Outpatient (CLI) | payer MEDICARE, MEDICAID, SELFPAY ==
--- NOTE | 2023-12-12 12:30 | CT_ITS ---
FINAL REPORT CLINICAL HISTORY: LUNG CANCER COMPARISON: 06/24/2023 FINDINGS: Axial CT images of the chest were obtained with contrast. Coronal reformatted images were also obtained. This study was performed with techniques to keep radiation doses as low as reasonably achievable, (ALARA). Individualized dose reduction techniques using automated exposure control or adjustment of mA and/or KV according to the patient''''s size were employed. There is diffuse esophageal wall thickening which may be inflammatory.There is no evidence of mediastinal or hilar mass or adenopathy.No axillary mass or adenopathy is identified. On lung window images, no pulmonary mass or dominant pulmonary nodule is identified. There are areas of consolidation involving the left lung which are stable from the prior exam and may represent posttreatment change. There is mild emphysema. There is a small right upper lobe opacity which is nonspecific but is overall worse from prior exam, favor inflammatory over neoplastic. Limited imaging of the upper abdomen demonstrates a less than 1 cm left hepatic lobe cyst. IMPRESSION: Stable left lung consolidation, favor posttreatment change. Worsening right upper lobe opacities which are nonspecific, favor inflammatory. Recommend follow-up chest CT for further evaluation. Reviewed, Interpreted and Dictated by Micah Verduzco III, MD Transcribed by Michelle Bernstein Authenticated and [facility]
[2023-12-12 12:55] LABS: Blood Urea Nitrogen 15 mg/dl (9-20); Estimated Glomerular Filt Rate 60 ml/min (>60); GFR (African American) 73 ML/MIN (>60)
[2023-12-12] MEDS: SODIUM CHLORIDE 0.9% 10ML SYR (RAD ONLY) 10 ML IV (13:49)
[2023-12-12] MEDS: IOPAMIDOL-370 (76%);100ML BOTTLE 75 ML IV (13:49)
== END 2023-12-12 23:59 | disposition home or self-care (01) ==
LOC: RAD 12:24
PROVIDERS: PCP Internal Medicine Medical Oncology; Visit Provider Internal Medicine Medical Oncology
DX: F17.210 Nicotine dependence, cigarettes, uncomplicated (principal); R93.89 Abnormal findings on diagnostic imaging of other specified body structures; J44.9 Chronic obstructive pulmonary disease, unspecified; R06.09 Other forms of dyspnea; J98.19 Other pulmonary collapse; R91.8 Other nonspecific abnormal finding of lung field; Z85.118 Personal history of other malignant neoplasm of bronchus and lung
CPT/HCPCS: 36415; 71260; 82565; 84520; Q9967

== ENCOUNTER 2024-06-15 11:32 | Outpatient (CLI) | payer MEDICARE, MEDICAID, SELFPAY ==
--- NOTE | 2024-06-15 11:36 | CT_ITS ---
FINAL REPORT TECHNIQUE: Axial imaging of the chest was obtained without contrast. Reformatted images were also obtained and reviewed.This study was performed with techniques to keep radiation doses as low as reasonably achievable, (ALARA). Individualized dose reduction technique using automated exposure control or adjustment of mA and/or kV according to the patient's size were employed. CLINICAL HISTORY: 6 mth F/U June 2023 COMPARISON: 12/12/2023 FINDINGS: There is no axillary adenopathy. There is no hilar or mediastinal mass or adenopathy. Heart size is normal. There is no pericardial or pleural effusion. Limited images of the upper abdomen are unremarkable. There is volume loss in the left hemithorax with shift of the mediastinal structures to the left. There is dense left upper lobe consolidation which is stable. Scarring is seen in the anterior right major fissure best seen on images 23 through 25 of series 2 and image 45 of series 2. Findings are stable from prior exam there are mild airspace opacities in the periphery of the right lower lobe which have resolved. IMPRESSION: Stable left upper lobe consolidation and volume loss. Interval resolution of airspace opacity in the right lower lobe. Reviewed, Interpreted and Dictated by Ignacio Ramires MD Transcribed by Michelle Bernstein Authenticated and . [facility]
== END 2024-06-15 23:59 | disposition home or self-care (01) ==
LOC: RAD 11:33
PROVIDERS: Visit Provider Internal Medicine Pulmonary Disease
DX: R91.8 Other nonspecific abnormal finding of lung field (principal)
CPT/HCPCS: 71250

== ENCOUNTER 2024-06-22 09:54 | Outpatient (CLI) | payer MEDICARE, MEDICAID, SELFPAY ==
--- NOTE | 2024-06-22 09:55 | US_ITS ---
FINAL REPORT TECHNIQUE: Multiple transverse and longitudinal images CLINICAL HISTORY: Hepatitis B COMPARISON: 12/04/2023 FINDINGS: The gallbladder shows no wall thickening, distention or stone disease. No biliary ductal dilatation is appreciated. No fluid collections are seen. The liver parenchyma is mildly coarsened which may be seen with chronic liver disease. No hepatic mass. Hepatic vasculature is patent on Doppler exam. The portal vein is borderline enlarged which may indicate portal hypertension. Limited portions of the right kidney are unremarkable. IMPRESSION: Persistent abnormal appearance of the liver parenchyma which may indicate chronic liver disease without obvious liver mass. Reviewed, Interpreted and Dictated by Gigi Moreira MD Transcribed by Henrietta Gutierrez Authenticated and . [facility]
[2024-06-22 11:03] LABS: Basophils # 0.1 K/mm3 (0-0.2); Basophils % 1.3 % (0.1-2.0); Eosinophils # 0.4 K/mm3 (0.0-0.4); Eosinophils % 5.5 % (0.1-12.0); Hematocrit 43.9 % (42.0-52.0); Lymphocytes # 1.4 K/mm3 (0.7-4.5); Lymphocytes % 21.1 % (10-50); Mean Corpuscular HGB Conc 34.2 g/dL (31.8-35.4); Mean Corpuscular Hemoglobin 29.9 pg (27.0-31.2); Mean Corpuscular Volume 87.5 fl (80-94); Mean Platelet Volume 9.9 fl (7.4-10.4); Monocytes # 0.5 K/mm3 (0.1-1.0); Monocytes % 7.4 % (1.7-9.3); Neutrophils # 4.3 K/mm3 (1.8-7.8); Neutrophils % 64.4 % (37.0-80.0); Platelet Count 402 K/mm3 (142-424); Red Blood Count 5.02 M/mm3 (4.60-6.20); Red Cell Distribution Width 12.6 % (11.5-17.5); White Blood Count 6.7 K/mm3 (4.8-10.8)
[2024-06-22 11:25] LABS: Alanine Aminotransferase 18 U/L (12-78); Albumin Level 4.3 g/dl (3.5-5.0); Albumin/Globulin Ratio 1.5 (1.1-1.8); Alkaline Phosphatase 82 U/L (38-126); Anion Gap 10.6 mEq/L (5-15); Aspartate Amino Transferase 34 U/L (17-59); Blood Urea Nitrogen 12 mg/dl (9-20); Calcium 9.9 mg/dl (8.4-10.2); Carbon Dioxide 30 mmol/L (22.0-30.0); Chloride 102 mmol/L (98-107); Estimated Glomerular Filt Rate 84 ml/min (>60); GFR (African American) 102 ML/MIN (>60); Globulin 2.9 g/dL (1.3-3.2); Glucose 88 mg/dl (74-100); Potassium 4.6 mmoL/L (3.5-5.1); Sodium 138 mmol/L (136-145); Total Protein,Serum 7.2 g/dl (6.3-8.2)
[2024-06-22 11:44] LABS: Bilirubin,Total 0.1 mg/dl (0.2-1.3)
[2024-06-23 08:13] LABS: AFP, Tumor Marker 3.1 ng/mL (0.0-8.4)
[2024-06-23 12:19] LABS: HBsAg Confirmation Positive (.); Hep B Surface Ab, Qual Non Reactive (.); Hep Be Ag Positive (Negative); Hepatitis B Surface Antigen Confirm. indicated (Negative); Hepatitis Be Antibody Non Reactive (Negative)
[2024-06-24 16:22] LABS: HBV IU/mL 350 IU/mL (.); log10 HBV IU/mL 2.544 (.)
[2024-06-25 04:08] LABS: ALT (SGPT) P5P 15 IU/L (0-55); AST (SGOT) P5P 31 IU/L (0-40); Alpha 2-Macroglobulins, Qn 287 mg/dL (110-276); Apolipoprotein A-1 109 mg/dL (101-178); Bilirubin, Total 0.2 mg/dL (0.0-1.2); Cholesterol, Total 207 mg/dL (100-199); Fibrosis Score 0.31 (0.00-0.21); Fibrosis Stage F1-F2 (.); GGT 26 IU/L (0-65); Glucose 90 mg/dL (70-99); Haptoglobin 270 mg/dL (32-363); Steatosis Score 0.38 (0.00-0.40); Triglycerides 152 mg/dL (0-149)
== END 2024-06-22 23:59 | disposition home or self-care (01) ==
PROVIDERS: PCP Family Medicine; Visit Provider Nurse Practitioner Family
DX: B18.1 Chronic viral hepatitis B without delta-agent (principal)
CPT/HCPCS: 36415; 76705; 80053; 82105; 82172; 82247; 82465; 82947; 82977; 83010; 83883; 84450; 84460; 84478; 85025; 86706; 86707; 87340; 87350; 87517

== ENCOUNTER 2024-08-23 10:21 | Day surgery (SDC) | payer MEDICARE, MEDICAID, SELFPAY ==
[2024-08-20 14:28] VITALS: BMI 25.0
[2024-08-23 11:41] VITALS: BP 167/91; PULSE 103; RESP 18; TEMP 36.4; O2SAT 99
[2024-08-23] MEDS: LACTATED RINGERS 1000ML 1,000 ML 50 ML IV (11:59)
--- NOTE | 2024-08-23 12:12 | EXP.HP ---
History of Present Illness *Admission Date: 08/23/24 *Reason for visit:: Screening for colon cancer *History of present illness: Mr. Moody is a 68-year-old gentleman who is here for screening/surveillance colonoscopy. His last colonoscopy was 10 years ago. The examination is deemed medically necessary for screening colonoscopy. The patient has been seen, interviewed and examined prior to the procedure by both myself and the anesthesia provider. [facility] Disclaimer: The information contained in this section may have been updated after the patient was seen, as this information can be updated by other users. Medical History Chest discomfort Dizziness Collapse of lung Guillain Riddle? syndrome Abnormal EKG Tobacco abuse counseling Tobacco abuse Dyspnea Smoking greater than 30 pack years COPD mixed type History of lung or bronchial cancer Lung mass Hepatitis A infection resolved per labs Hepatitis C Negative titer reported 11/29/22 Non-small cell lung cancer Surgical History History of bronchoscopy History of skin graft Family History Other Family history of cancer Social History Smoking Status: Current every day smoker alcohol intake: current substance use type: denies use current occupational status: retired and disabled Travel in the last 8 weeks?: None Have you lived/traveled outside US in past 30 days?: No Contact w/someone who lives/traveled outside US past 30 days?: No Exposure to someone with infectious disease in past 14 days?: No Do you have a fever (greater than 100.4 F or 38 C)?: No Have you tested positive for COVID-19?: No Exposed to someone with COVID-19 in past 14 days?: No Do you have a sore throat?: No Do you have a cough?: No Do you have any weakness?: No Do you have any diarrhea?: No Are you experiencing any unusual bleeding?: No Do you have any muscle aches/pain?: No Do you have any abdominal pain?: No Are you experiencing loss of taste or smell?: No Other Medical History Have you received the Pneumonia Vaccine: No Review of Systems Review of Systems Review of systems (narrative): Negative *Cardiovascular Comments: Negative *Gastrointestinal Comments: Negative *Genitourinary Comments: Negative *Musculoskeletal Comments: Negative *Neurologic Comments: Negative Meds Home Medications and Allergies Home Medications ?Medication ?Instructions ?Recorded ?Confirmed ?Type albuterol sulfate 90 mcg/actuation 2 inh inhalation NEEDED PRN soa 08/22/22 08/23/24 History aerosol inhaler omeprazole 40 mg capsule,delayed 40 mg PO BID #60 caps 12/11/23 08/23/24 Rx release entecavir 0.5 mg tablet 0.5 mg PO DAILY Chronic active 04/19/24 08/23/24 Rx Viral Hepatitis #30 tabs ibuprofen 200 mg capsule 200 mg PO Q6H PRN Pain 06/15/24 08/23/24 History tiotropium 2.5 mcg-olodaterol 2.5 2 inh inhalation DAILY 90 days #12 06/15/24 08/23/24 Rx mcg/actuation mist for inhalation grams (Stiolto Respimat) New Prescriptions to Start Prescriptions: Allergies Allergy/AdvReac Type Severity Reaction Status Date / Time Penicillins Allergy Rash Verified 08/23/24 11:40 Exam Data for Last 24 hours Vital signs and Labs for Last 24 Hours: Temp Pulse Resp O2 Del Method 97.5 F L 103 H 18 Room Air 08/23/24 11:41 08/23/24 11:41 08/23/24 11:41 08/23/24 11:41 I & O for Last 24 hours: Intake & Output 08/20/24 08/21/24 08/22/24 08/23/24 23:59 23:59 23:59 23:59 Weight 150 lb *Routine HEENT Exam Head: Present normocephalic Eye: Present EOMI and PERRL ENT: Present mucous membranes moist *Routine Neck Exam Neck: Present supple *Routine Respiratory Exam Respiratory: Present CTA bilaterally *Routine Cardiovascular Exam Cardiovascular: Present RRR *Routine Abdominal Exam Abdominal: Present soft and normoactive bowel sounds; Absent tenderness *Routine Rectal Exam Rectal:: deferred *Routine Genitalia Exam Genitalia:: deferred *Routine Extremities Exam Extremities: Absent cyanosis, clubbing or edema *Routine Skin Exam Skin: Present warm; Absent rash *Routine Neurological Exam Neurological: Present alert and oriented X3 Assessment and Plan *Assessment and plan (1) Screening for malignant neoplasm of colon: Status: Acute Category: Medical Code(s): Z12.11 - Encounter for screening for malignant neoplasm of colon Plan A/P: 1. Screening for colon cancer is the preprocedural diagnosis. His last colonoscopy was 10 years ago in [place]. The patient will be anesthetized/sedated using MAC sedation. The patient has been seen and examined. Cardiac and lung assessment prior to the examination is stable. Proceed with planned screening colonoscopy.
--- NOTE | 2024-08-23 12:14 | HMH.PROCNOTE ---
[facility] Procedure Note Date: 08/23/24 Time: 12:40 Procedure Note:: Colonoscopy Procedure Report: Colonoscopy Endoscopist: Helder Hernandez II, MD Referring physician: Bharat Gonzales MD Date of Procedure: August 23, 2024 Equipment: Olympus 190 variable stiffness pediatric colonoscope Sedation: MAC sedation Indication: Mr. Moody is a 68-year-old gentleman who is here for follow-up screening/surveillance colonoscopy. He did have a colonoscopy 10 years ago (in [place]). He reports no abdominal pain, weight loss, change in his bowel habits or rectal bleeding. He reports no family history of colon cancer. The patient does have a history of chronic inactive hepatitis B. His initial viral load was greater than 1 billion and he was placed on Entecavir almost 2 years ago. His most recent HPV DNA was 350 IU/mL. He does have positive hepatitis B surface antigen and positive hepatitis B E antigen. Liver chemistries and alpha-fetoprotein are normal. Hepatic fibrotic testing shows mild fibrosis (stage F1?F2). Procedure: Prior to the procedure, a history and physical exam was performed, and patient's medications and allergies were reviewed. The risks, benefits and alternatives of the sedation and procedure were discussed with the patient. All questions were answered and informed consent was obtained. The patient was brought to the procedure room. Patient identification and proposed procedure were verified by the physician and the nurse. The patient was placed in a left lateral decubitus position and the scope was passed under direct vision. Throughout the procedure, the patient's blood pressure, pulse, and oxygen saturations were monitored continuously. The colonoscopy was accomplished without difficulty. The patient tolerated the procedure well. Findings: On digital rectal examination there was normal rectal tone. There were no external hemorrhoids. The prostate was 2+, mildly firm but symmetric without nodules. The colonoscope was introduced through the anal canal to the rectum and advanced to the cecum. The ileocecal valve and appendiceal orifice were identified. The scope was advanced a short distance into the ileum which appeared grossly normal. The scope was then withdrawn into the colon. The cecum, ascending and transverse colon and mucosa were grossly normal. There were scattered diverticuli throughout the descending and sigmoid colon (LEFT colon). The rectum itself was normal. Upon retroflexion within the rectum there were grade 2-3 internal hemorrhoids. The preparation was excellent throughout with [place] Preparation Score of 9. The cecal time was 12 minutes. Impression: 1. Left-sided diverticulosis 2. Grade 2-3 internal hemorrhoids Plan: The patient will not require surveillance colonoscopy again for 10 years by ACS guidelines. I would encourage psyllium bulking fiber supplementation on a long-term daily maintenance basis. He will continue Entecavir antiviral therapy long-term and will have surveillance HCC screening, AFP, ultrasound and labs annually.
[2024-08-23 12:15] VITALS: O2SAT 99
[2024-08-23 12:47] VITALS: BP 170/64; PULSE 93; RESP 16; TEMP 36.2; O2SAT 100
[2024-08-23 12:57] VITALS: BP 130/69; PULSE 92; RESP 16; O2SAT 99
[2024-08-23 13:07] VITALS: BP 139/66; PULSE 90; RESP 18; O2SAT 98
[2024-08-23 13:17] VITALS: BP 125/75; PULSE 92; RESP 18; O2SAT 99
== END 2024-08-23 13:58 | disposition home or self-care (01) ==
PROVIDERS: PCP Family Medicine; Visit Provider Internal Medicine Gastroenterology
PROC: 0DJD8ZZ Inspection of Lower Intestinal Tract, Via Natural or Artificial Opening Endoscopic (ICD-10-PCS; CPT 45378; principal; 2024-08-23 12:00)
DX: Z12.11 Encounter for screening for malignant neoplasm of colon (principal); K57.30 Diverticulosis of large intestine without perforation or abscess without bleeding; K64.8 Other hemorrhoids
CPT/HCPCS: G0121; J7120

== ENCOUNTER 2024-12-20 10:47 | Outpatient (CLI) | payer MEDICARE, MEDICAID, SELFPAY ==
--- OUTSIDE RECORDS SUMMARY | 2023-07-02 07:00 | XMS_ITS ---
Author Organization [facility] Address [address] [place] [phone] Care Team Providers Care Ditch Tender Name Role Phone Bharat Gonzales Primary Care Provider [phone] Allergies Allergen (clinical drug ingredient) Drug/Non Drug Allergy documented on EMR Reaction Allergy Type Onset Date Status Penicillin Unknown Drug Allergy Active REASON FOR VISIT 6 months Medications Medication SIG (Take, Route, Frequency, Duration) Notes Start Date End Date Status Nicotine 21 MG/24HR 1 patch to skin Transdermal Once a day; Duration: 30 day(s) 10/17/2022 Active Albuterol Sulfate HFA 108 (90 Base) MCG/ACT 2 puff as needed Inhalation qid and q2h prn 03/04/2023 Activ e Entecavir 0.5 MG 1 tablet on an empty stomach Orally Once a day; Duration: 10 day(s) Active Tamsulosin HCl 0.4 MG 1 cap(s) orally on ce a day; Duration: 90 days 03/26/2022 Active Anoro Ellipta 62.5-25 MCG/ACT 1 puff Inhalation Once a day Active Vital Signs Blood pressure systolic 140 mm Hg 07/02/19 24 Blood pressure diastolic 70 mm Hg 024 Heart Rate 100 /min 07/02/2023 Height 65 in 07/02/2023 Weight 154.6 lbs 07/02/2023 BMI 25.72 kg/m2 07/02/2023 Encounters Encounter Location Date Provider Diagnosis [facility] [address] [place] [id number] 07/02/2023 Bharat Gonzales Benign prostatic hyperplasia with lower urinary tract symptoms N40.1 Assessments Encounter Date Diagnosis (ICD Code) Assessment Notes Treatment Notes Treatment Clinical Notes Section Notes 07/02/2023 Benign prostatic hyperplasia with lower urinary tract symptoms (ICD-10 - N40.1) 07/02/2023 Other Patient has appt. with cardiology at [facility] tomorrow Plan Of Treatment Medication Medication Name Sig Start Date Stop Date Notes Tamsulosin HCl 0.4 MG 1 cap(s) orally on ce a day; Duration: 90 days 03/26/2022 Treatment Notes Assessment Notes Other Patient has appt. wi th cardiology at [facility] tomorrow Next Appt Details Follow Up: 6 Months, Reason: Provider Name:Bharat Parks ry, 01/03/2025 10:00:00 AM, [address] [facility] [address], [address], [place], [place], [phone], Progress Notes * TAZ MOLINAOB:1955 (69 yo M)Acc No.[id number]:07/02/2023 Progress Notes Patient: PARMINDER MCLAUGHLIN Provider: Mariam Gonzales M.D. :1955 A ge:67 Y S ex:Male Date:07/02/2023 Address:[address] [place] [address], [id number] Subjective: * Chief Complaints: * 1 . 6 months. * HPI: H PI: 67 year old male presents with c/o Patient is here today for?a check up with refills, pt needs rf on Tamsulosin. * ROS: D ERMATOLOGY: no R amauri. n o H elisha. G ASTROENTEROLOGY: no N ausea. n o V omiting. U ROLOGY: no D ifficulty urinating. n o B lood in urine. * Medical History: L adriana Cancer, Dx: 2021 treated at [facility] with radiation and chemotherapy, Depression, Arthritis, Benign Prostatic Hyperplasia, COPD, hepatitis B, s/p GI evaluation 2022. * Surgical History: D enies Past Surgical History. * Hospitalization/Major Diagno stic Procedure: D enies Past Hospitalization. * Family History: F ather: diagnosed with Diabetes. M other: diagnosed with Hypertension. * Medications: T aking Entecavir 0.5 MG Tablet 1 tablet on an empty stomach Orally Once a day , Taking Anoro Ellipta 62.5-25 MCG/ACT Aerosol Powder Breath Activated 1 puff Inhalation Once a day , Taking Albuterol Sulfate HFA 108 (90 Base) MCG/ACT Aerosol Solution 2 puff as needed Inhalation qid and q2h prn , Taking Tamsulosin HCl 0.4 MG Capsule 1 cap(s) orally once a day , Taking Nicotine 21 MG/24HR Patch 24 Hour 1 patch to skin Transdermal Once a day , Discontinued Meloxicam 7.5 MG Tablet 1 tablet Orally Once a day , Discontinued Cyclobenzaprine HCl 5 MG Tablet 1 tablet at bedtime as needed Orally every 8 hours , Discontinued Sildenafil Citrate 20 MG Tablet 1 to 5 tab(s) orally once daily as needed , Medication List reviewed and reconciled with the patient * Allergies: P enicillin. Objective: * Vitals: W t:154.6, Temp:98.3, BP:140/70, HR:100, Nurse:meme, Ht: 65, BMI:25.72. * Examination: G eneral Examination: General Appearance: N AD. Assessment: * Assessment: 1. B enign prostatic hyperplasia with lower urinary tract symptoms - N40.1 (Primary) Plan: * Treatment: 2. O thers Notes: Patient has appt. with cardiology at [facility] tomorrow * Procedure Codes: G 2211 Complex e/m visit add on * Follow Up: 6 Months * Images: Billing Information: * Visit Code: 81020 Office Visit, Est Pt., Level 3. * Procedure Codes: G2211 Complex e/m visit add on. * Electronic signature of Eli Gonzales MD on 12/20/2024 at 10:50 AM EDT Sign off status: Pending * Provider: Mariam Gonzales M.D. Date: 0 07/02/2023 Generated for Seema steele/Cayetano/eTransmitting on: 0 12/20/2024 10:50 AM EDT History and Physical Notes * HPI (History of Present Illness) Category Sub-Category Detail Notes Category Not es HPI Patient is here today for a [facility] k up with refills, pt needs rf on Tamsulosin Examination Category Sub-Category Detail Notes Category Not es General Examination General Appearance: NAD
--- OUTSIDE RECORDS SUMMARY | 2023-12-31 07:00 | XMS_ITS ---
Author Organization [facility] Address 12[address] [facility] [address] [place] [phone] Care Team Providers Care Milling Machine Operator Name Role Phone Bharat Gonzales Primary Care Provider Allergies Allergen (clinical drug ingredient) Drug/Non Drug Allergy documented on EMR Reaction Allergy Type Onset Date Status Penicillin Unknown Drug Allergy Active REASON FOR VISIT 6 months Medications Medication SIG (Take, Route, Frequency, Duration) Notes Start Date End Date Status Albuterol Sulfate HFA 108 (90 Base) MCG/ACT INHALE 2 PUFFS BY MOUTH FOUR TIMES A DAY AND EVERY 2 HOURS NEEDED Active Sildenafil Citrate 20 MG 1 tablet Orally Once a day; Duration: 30 day(s) 11/07/2023 Active Entecavir 0.5 MG 1 tablet on an empty stomach Orally Once a day; Duration: 10 day(s) Active Anoro Ellipta 62.5-25 MCG/ACT 1 puff Inhalation Once a day Active Vital Signs Blood pressure systolic 140 mm Hg 12/31/19 24 Blood pressure diastolic 76 mm Hg 024 Heart Rate 89 /min 12/31/2023 Height 65 in 12/31/2023 Weight 146.8 lbs 12/31/2023 BMI 24.43 kg/m2 12/31/2023 Encounters Encounter Location Date Provider Diagnosis [facility] 36 [facility] [address] [place] [phone] 12/31/2023 Bharat Gonzales Chronic obstructive pulmonary disease, unspecified COPD type J44.9 and Cigarette nicotine dependence without complication F17.210 Assessments Encounter Date Diagnosis (ICD Code) Assessment Notes Treatment Notes Treatment Clinical Notes Section Notes 12/31/2023 Chronic obstructive pulmonary disease, unspecified COPD type (ICD-10 - J44.9) 12/31/2023 Cigarette nicotine dependence without complication (ICD-10 - F17.210) Smoking cessation and necessary changes of behavior discussed with patient Plan Of Treatment Medication Medication Name Sig Start Date Stop Date Notes Albuterol Sulfate HFA 108 (9 0 Base) MCG/ACT INHALE 2 PUFFS BY MOUTH FOUR TIMES A DAY AND EVERY 2 HOURS NEEDED Anoro Ellipta 62.5-25 MCG/ACT 1 puff Inhalation Once a day Treatment Notes Assessment Notes Cigarette nicotine dependenc e without complication Smoking cessation and necessary changes of behavior discussed with patient Next Appt Details Follow Up: 6 Months, Reason: Provider Name:Bharat Parks ry, 01/03/2025 10:00:00 AM, [facility] [address], [address], [place], [place], [id number], Progress Notes * TAZ MOLINAOB:1955 (69 yo M)Acc No.[id number]:12/31/2023 Progress Notes Patient: PARMINDER [place] Provider: Mariam Gonzales M.D. :1955 A ge:68 Y S ex:Male Date:12/31/2023 Address:[address] [place] [address], [facility] Subjective: * Chief Complaints: * 1 . 6 months. * HPI: H PI: 68 year old male presents with c/o Patient is here today for?6 mo f/u, states he is doing well and does not have any concerns today. Pt is not fasting. * ROS: D ERMATOLOGY: no R amauri. n o H elisha. G ASTROENTEROLOGY: no N ausea. n o V omiting. U ROLOGY: no D ifficulty urinating. n o B lood in urine. 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 * Surgical History: D enies Past Surgical [...] HFA 108 (90 Base) MCG/ACT Aerosol Solution INHALE 2 PUFFS BY MOUTH FOUR TIMES A DAY AND EVERY 2 HOURS NEEDED , Taking Sildenafil Citrate 20 MG Tablet 1 tablet Orally Once a day , Discontinued Nicotine 21 MG/24HR Patch 24 Hour 1 patch to skin Transdermal Once a day , Discontinued Tamsulosin HCl 0.4 MG Capsule 1 cap(s) orally once a day , Medication List reviewed and reconciled with the patient * Allergies: P enicillin. Objective: * Vitals: W t:146.8, Temp:97.9, BP:140/76, HR:89, Nurse:meme, Ht: 65, BMI:24.43. * Examination: G eneral Examination: General Appearance: N AD. H eart: R SR. L ungs:?clear to auscultation. Assessment: * Assessment: 1. C hronic obstructive pulmonary disease, unspecified COPD type - J44.9 (Primary) ?2. C igarette nicotine dependence without complication - F17.210 Plan: * Treatment: 2. C igarette nicotine dependence without complication Notes: Smoking cessation and necessary changes of behavior discussed with patient * Procedure Codes: G 2211 Complex e/m visit add on * Follow Up: 6 Months * Images: Billing Information: * Visit Code: 80512 Office Visit, Est Pt., Level 3. * Procedure Codes: G2211 Complex e/m visit add on. * Electronic signature of Eli Gnozales MD on 12/20/2024 at 10:49 AM EDT Sign off status: Pending * Provider: Mariam Gonzales M.D. Date: 0 12/31/2023 Generated for Seema steele/Cayetano/Janitting on: 0 12/20/2024 10:49 AM EDT History and Physical Notes * HPI (History of Present Illness) Category Sub-Category Detail Notes Category Not es HPI Patient is here today for 6 mo f /u, states he is doing well and does not have any concerns today. Pt is not fasting Examination Category Sub-Category Detail Notes Category Not es General Examination Heart: RSR Lungs: clear to auscultatio n General Appearance: NAD
--- OUTSIDE RECORDS SUMMARY | 2024-07-02 07:00 | XMS_ITS ---
Author Organization [facility] Address 1210 [facility] [address] [place] [phone] Care Team Providers Care Gantry Rigger Name Role Phone Bharat Gonzales Primary Care Provider Allergies Allergen (clinical drug ingredient) Drug/Non Drug Allergy documented on EMR Reaction Allergy Type Onset Date Status Penicillin Unknown Drug Allergy Active REASON FOR VISIT 6 month check up Medications Medication SIG (Take, Route, Frequency, Duration) Notes Start Date End Date Status Entecavir 0.5 MG 1 tablet on an empty stomach Orally Once a day; Duration: 10 day(s) Active Sildenafil Citrate 20 MG 1 to 3 tablet O rally Once a day 11/07/2023 Active Anoro Ellipta 62.5-25 MCG/ACT 1 puff Inhalation Once a day Active Albuterol Sulfate HFA 108 (90 Base) MCG/ACT INHALE 2 PUFFS BY MOUTH FOUR TIMES A DAY AND EVERY 2 HOURS NEEDED Active Vital Signs Blood pressure systolic 140 mm Hg 07/03/19 25 Blood pressure diastolic 70 mm Hg 025 Heart Rate 96 /min 07/02/2024 Height 65 in 07/02/2024 Weight 148.8 lbs 07/02/2024 BMI 24.76 kg/m2 07/02/2024 Encounters Encounter Location Date Provider Diagnosis [facility] 12[facility] 36 [facility] [address] [place] [phone] 07/02/2024 Bharat Gonzales Benign prostatic hyperplasia with lower urinary tract symptoms N40.1 and Erectile dysfunction, unspecified erectile dysfunction type N52.9 Assessments Encounter Date Diagnosis (ICD Code) Assessment Notes Treatment Notes Treatment Clinical Notes Section Notes 07/02/2024 Benign prostatic hyperplasia with lower urinary tract symptoms (ICD-10 - N40.1) Symptoms are stable at this time 07/02/2024 Erectile dysfunction, unspecified erectile dysfunction type (ICD-10 - N52.9) Plan Of Treatment Medication Medication Name Sig Start Date Stop Date Notes Sildenafil Citrate 20 MG 1 to 3 tablet Orally Once a day 0 11/07/2023 Treatment Notes Assessment Notes Benign prostatic hyperplasia with lower urinary tract symptoms Symptoms are stable at this time Next Appt Details Follow Up: 6 Months, Reason: Provider Name:Bharat Parks ry, 01/03/2025 10:00:00 AM, [address] [facility] [address], [address], [place], [place], [id number], Progress Notes * TAZ MOLINAOB:1955 (69 yo M)Acc No.[id number]:07/02/2024 Progress Notes Patient: PARMINDER [place] Provider: Mariam Gonzales M.D. :1955 A ge:68 Y S ex:Male Date:07/02/2024 Address:[address] [place] [address], [facility] Subjective: * Chief Complaints: * 1 . 6 month check up. * HPI: H PI: 68 year old male presents with c/o Patient is here today for? Pt here for 6 mo check up. Pt states he is doing well and does not have any concerns. * ROS: D ERMATOLOGY: no R amauri. n o H elisha. G ASTROENTEROLOGY: no N ausea. n o V omiting. U ROLOGY: no D ifficulty urinating. n o B lood in urine. * Medical History: L adriana Cancer, Dx: 2021 treated at [facility] with radiation and chemotherapy, Depression, Arthritis, Benign [...] stomach Orally Once a day , Taking Sildenafil Citrate 20 MG Tablet 1 tablet Orally Once a day , Taking Anoro Ellipta 62.5-25 MCG/ACT Aerosol Powder Breath Activated 1 puff Inhalation Once a day , Taking Albuterol Sulfate HFA 108 (90 Base) MCG/ACT Aerosol Solution INHALE 2 PUFFS BY MOUTH FOUR TIMES A DAY AND EVERY 2 HOURS NEEDED , Medication List reviewed and reconciled with the patient * Allergies: P enicillin. Objective: * Vitals: W t:148.8, Temp:98.0, BP:140/70, HR:96, Nurse:meme, Ht: 65, BMI:24.76. * Examination: G eneral Examination: General Appearance: N AD. H eart: R SR. L ungs:?clear to auscultation. Assessment: * Assessment: 1. B enign prostatic hyperplasia with lower urinary tract symptoms - N40.1 (Primary) 2 . E rectile dysfunction, unspecified erectile dysfunction type - N52.9 Plan: * Treatment: 2. E rectile dysfunction, unspecified erectile dysfunction type Refill Sildenafil Citrate Tablet, 20 MG, 1 to 3 tablet, Orally, Once a day, 30, Refills 5. ? * Procedure Codes: G 2211 Complex e/m visit add on, 3077F SYST BP = 140 MM HG6 IT, 3078F DIAST BP < 80 MM HG * Follow Up: 6 Months * Images: Billing Information: * Visit Code: 63721 Office Visit, Est Pt., Level 3. * Procedure Codes: G2211 Complex e/m visit add on. 3077F SYST BP = 140 MM HG6 IT. 3078F DIAST BP < 80 MM HG. * Electronic signature of Eli Gonzales MD on 12/20/2024 at 10:50 AM EDT Sign off status: Pending * Provider: Mariam Gonzales M.D. Date: 07/02/2024 Generated for Seema steele/Cayetano/Adamsmitting on: 0 12/20/2024 10:50 AM EDT History and Physical Notes * HPI (History of Present Illness) Category Sub-Category Detail Notes Category Not es HPI Patient is here today for Pt her e for 6 mo check up. Pt states he is doing well and does not have any concerns Examination Category Sub-Category Detail Notes Category Not es General Examination Heart: RSR Lungs: clear to auscultatio n General Appearance: NAD
--- OUTSIDE RECORDS SUMMARY | 2024-12-20 10:50 | XMS_ITS | Encounter Summary ---
Author Organization Healthcare Address [address] [place] [address] Care Team Providers Care Bariatric Program Coordinator Name Role Phone Pcp, No Primary Care Provider Unavailabl e Encounter Details Date Type Department Care Team (Late st Contact Info) Description 10/05/2021 Orders Only [facility] [address] [place] [address] Margarita Dixon MD [address] [facility] 2nd [place] [address] Social History Tobacco Use Types Packs/Day Years Used Date Smoking Tobacco: Never Assessed Sex and Gender Information Value Date Recorded Sex Assigned at Not on file Legal Sex Male 12:03 PM EDT Gender Identity Not on file Sexual Orientation Not on file documented as of this encounter Plan of Treatment Not on file documented as of this encounter Procedures Procedure Name Priority Date/Time Associated Diagnosis Comments CBC WITH AUTO DIFFERENTIAL Routine 10/05/2021 11:20 AM EDT documented in this encounter Results * (ABNORMAL) CBC and Differential (10/05/2021 11:20 AM EDT) External WBC 3.6(L) 3.8 - 10.8 K/uL [facility] External Red Blood Cell (RBC) 3.68(L) 4.20 - 5.80 M/uL [facility] External Hemoglobin 10.8(L) 14.0 - 18.0 G/DL [facility] External Hematocrit 31.2(L) 40.0 - 52.0 % [facility] External MCV 85 80 - 100 fL [facility] External MCH 29 26 - 35 [facility] External MCHC 35 32 - 36 G/DL [facility] External RDW 17.6(H) 11.0 - 15.0 % [facility] External Mean Platelet Volume 7.1 6.2 - 10.5 fL [facility] External Platelets 377 130 - 400 K/uL [facility] External Neutrophil# 1.7 1.6 - 8.4 K/uL [facility] External Lymphocyte# 1.2 0.4 - 5.1 K/uL [facility] External Absolute Monocyte (Abs Sebastian) 0.6 0.0 - 1.2 K/uL [facility] External Eosinophils# 0.0 0.0 - 0.8 K/uL [facility] External Baso# 0.0 0.0 - 0.3 K/uL [facility] External Neutrophils % 46.4 42.0 - 78.0 % [facility] External Lymphocyte % 34.1 11.0 - 47.0 % [facility] External Monocyte % 17.6(H) 0.0 - 11.0 % [facility] External Eosinophil% 1.2 0.0 - 7.0 % [facility] External Basophil % 0.7 0.0 - 3.0 % [facility] External Nucleated RBC%-Auto 0.2 0.0 - 0.9 % [facility] External Nucleated RBC Absolute 0.01 Not Estab. K/uL [facility] 10/05/2021 11:2 0 AM EDT 10/05/2021 11:39 AM EDT us Margarita Dixon MD LAB BLOOD ORDERABLES Renee l Result [facility] [address] [place] [address], [place] [phone] documented in this encounter Visit Diagnoses Not on filedocumented in this encounter Care Teams Bariatric Program Coordinator Relationship Specialty Start Date End Date Pcp, Kayla [address] [place] [address] PCP - General Family Medicine 04/07/21 documented as of this encounter
--- OUTSIDE RECORDS SUMMARY | 2024-12-20 10:50 | XMS_ITS | Encounter Summary ---
Author Organization Healthcare Address [address] [place] [address] Care Team Providers Care Rolling Machine Operator Name Role Phone Pcp, No Primary Care Provider Unavailabl e Encounter Details Date Type Department Care Team (Late st Contact Info) Description 10/05/2021 Orders Only [facility] [address] [place] [address] Margarita Dixon MD [address] [address] Social History Tobacco Use Types Packs/Day [...] Procedure Name Priority Date/Time Associated Diagnosis Comments COMPREHENSIVE METABOLIC PANEL, PLASMA Routine 10/05/2021 11:20 AM EDT documented in this encounter Results * (ABNORMAL) Comprehensive Metabolic Panel, Plasma (10/05/2021 11:20 AM EDT) External Glucose 97 74 - 100 mg/dL [facility] External BUN 12 6 - 20 mg/dL [facility] External Creatinine Blood 1.02 0.70 - 1.28 mg/dL [facility] External BUN/Creat Ratio 12 10 - 20 (calc) [facility] External Sodium 134(L) 136 - 145 mmol/L [facility] External Potassium 4.2 3.4 - 5.0 mmol/L [facility] External Chloride 100 98 - 107 mmol/L [facility] External Carbon Dioxide 25 22 - 31 mmol/L [facility] External Anion Gap (AG) 9 7 - 25 (calc) [facility] External Calcium 9.4 8.6 - 10.2 mg/dL [facility] External Total Protein 6.8 6.4 - 8.3 g/dL [facility] External Albumin 3.3(L) 3.5 - 5.2 g/dL [facility] External Globulin 3.5 1.5 - 4.5 g/dL (calc) [facility] External Albumin/Globulin Ratio 0.9(L) 1.1 - 2.5 (calc) [facility] External Bilirubin Total 0.2 0.1 - 1.2 mg/dL [facility] External Alkaline Phosphatase 84 40 - 129 U/L [facility] External AST (SGOT) 17 0 - 40 U/L [facility] External ALT (SGPT) 9 0 - 41 U/L [facility] External Estimated GFR 81 >=60 [facility] Comment: NOTE New calculation for GFR (CKD-EPI 2020) is formulated without race adjustment factors at the recommendation of the National Kidney Foundation and [place] Society of Nephrology. This calculation has not been validated in women. For pediatric patients refer to https://www.kidney.org/professionals/KDOQI/gfr_calculatorPed 10/05/2021 11:2 0 AM EDT 10/05/2021 11:40 AM EDT us Margarita Dixon MD LAB BLOOD ORDERABLES Renee parmar Result [facility] [address] [place] [address], [place] [phone] documented in this encounter Visit Diagnoses Not on filedocumented in this encounter Care Teams Rolling Machine Operator Relationship Specialty Start Date End Date Pcp, Kayla [address] [place] [address] PCP - General Family Medicine 04/07/21 documented as of this encounter
--- OUTSIDE RECORDS SUMMARY | 2024-12-20 10:50 | XMS_ITS | Clinical Summary ---
Author Organization Healthcare Address [address] [place] [address] Care Team Providers Care Gore Cutter Name Role Phone Pcp, No Primary Care Provider Unavailabl e Social History Tobacco Use Types Packs/Day Years Used Date Smoking Tobacco: Never Assessed Sex and Gender Information Value Date Recorded Sex Assigned at Not on file Legal Sex Male 12:03 PM EDT Gender Identity Not on file Sexual Orientation Not on file Plan of Treatment Health Maintenance Due Date Last Done Comments [facility]-Depression Screening 1955 [facility]-Hepatitis C Screening 1955 [facility]-Medicare Annual Wellness (AWV) 1955 [facility]-/Child/Adol SDOH Screenings 1955 [facility]- SDOH Screenings 12/20/1973 [facility]-Adult SDOH Screenings 12/20/1973 [facility]-DTaP,Tdap,and Td Vaccine s (1 - Tdap) 12/20/1974 CT Colonography 12/20/2000 Colonoscopy 12/20/2000 FIT-DNA 12/20/2000 FIT 12/20/2000 FOBT 12/20/2000 Sigmoidoscopy 12/20/2000 [facility]-Colorectal Cancer Screening 12/20/2000 [facility]-Pneumococcal Vaccine: 50 + Years (1 of 1 - PCV) 12/20/2005 [facility]-Zoster Vaccines (1 of 2) 12/20/2005 [id number] Vaccine (1 - 20 24-25 season) 2024 [facility]-Influenza Vaccine (#1) 2024 [facility]-RSV Vaccine: 60+ Years o r (1 - 1-dose 75+ series) 12/20/2030 HPV Vaccines Aged Out No longer eligi ble based on patient's age to complete this topic [facility]-HIB Vaccines Aged Out No longer e ligible based on patient's age to complete this topic [facility]-Hepatitis A Vaccines Aged Out No longer eligible based on patient's age to complete this topic [facility]-IPV Vaccines Aged Out No longer e ligible based on patient's age to complete this topic [facility]-Rotavirus Vaccines Aged Out No lo nger eligible based on patient's age to complete this topic Insurance [facility] Hidden [address] MEDICARE Care Teams Gore Cutter Relationship Specialty Start [place] [address] PCP - General Family Medicine 04/07/21
--- OUTSIDE RECORDS SUMMARY | 2024-12-20 10:50 | XMS_ITS | Encounter Summary ---
Author Organization Healthcare Address [address] [place] [address] Care Team Providers Care Buyer Grain Name Role Phone Pcp, No Primary Care Provider Unavailabl e Encounter Details Date Type Department Care Team (Late st Contact Info) Description 10/05/2021 Orders Only [facility] [address] [place] [address] Margarita Dixon MD [address] [address] Social History Tobacco Use Types [...] Procedure Name Priority Date/Time Associated Diagnosis Comments TSH Routine 10/05/2021 11:20 AM EDT documented in this encounter Results * Thyroid Stimulating Hormone, Plasma (10/05/2021 11:20 AM EDT) External Thyroid Stimulating Hormone (TSH) 1.660 0.270 - 4.200 uIU/mL [facility] 10/05/2021 11:2 0 AM EDT 10/05/2021 11:40 AM EDT us Margarita Dixon MD LAB BLOOD ORDERABLES Renee l Result [facility] [address] [place] [address], documented in this encounter Visit Diagnoses Not on filedocumented in this encounter Care Teams Buyer Grain Relationship Specialty Start Date End Date Pcp, Kayla [address] [place] [address] PCP - General Family Medicine 04/07/21 documented as of this encounter
--- OUTSIDE RECORDS SUMMARY | 2024-12-20 10:50 | XMS_ITS | Patient Health Record ---
[facility] [address] [facility] [address] [facility] [address] [id number] Care Team Providers Care Oyster Picker Name Role Phone Bharat Gonzales Primary Care Provider [phone] Allergies Allergen (clinical drug ingredient) Drug/Non Drug Allergy documented on EMR Reaction Allergy Type Onset Date Status Penicillin Unknown Drug Allergy Active Reason For Referral No Information Medications Medication SIG (Take, Route, Frequency, Duration) Notes Start Date End Date Status Albuterol Sulfate HFA 108 (90 Base) MCG/ACT INHALE 2 PUFFS BY MOUTH FOUR TIMES A DAY AND EVERY 2 HOURS NEEDED; Duration: 16 Active Entecavir 0.5 MG 1 tablet on an empty stomach Orally Once a day; Duration: 10 day(s) Active Sildenafil Citrate 20 MG 1 to 3 tablet O rally Once a day 11/07/2023 Active Anoro Ellipta 62.5-25 MCG/ACT 1 puff Inhalation Once a day Active Problems Problem Type SNOMED Code ICD Code Onset Dates Problem Status W/U Status Risk Notes Problem Constipation (67990912) Constipation, unspecified constipation type (K59.00) Active confirmed Problem COPD - Chronic obstructive pulmonary disease (31666203) Chronic obstructive pulmonary disease, unspecified COPD type (J44.9) Active confirmed Problem Erectile dysfunction (disorder) (882741610) Erectile dysfunction, unspecified erectile dysfunction type (N52.9) Active confirmed Problem Tobacco user (903304609) Cigarette nicotine dependence without complication (F17.210) Active confirmed Problem Lower urinary tract symptoms due to benign prostatic hypertrophy (56121187389369) Benign prostatic hyperplasia with lower urinary tract symptoms (N40.1) Active confirmed Problem Malignant neoplasm of respiratory system (401795969) Malignant neoplasm of left lung, unspecified part of lung (C34.92) Active confirmed Vital Signs Heart Rate 96 /min 07/02/2024 Blood pressure diastolic 70 mm Hg 07/02/2024 Height 65 in 07/02/2024 Blood pressure systolic 140 mm Hg 07/02/2024 Weight 148.8 lbs 07/02/2024 BMI 24.76 kg/m2 07/02/2024 Encounters Encounter Location Date Provider Diagnosis [facility] [address] [place] [id number] 12/31/2023 Bharat Gonzales Chronic obstructive pulmonary disease, unspecified COPD type J44.9 and Cigarette nicotine dependence without complication F17.210 [facility] [address] [facility] [address] [facility] [address] [place] [phone] 07/02/2024 Bharat Gonzales Benign prostatic hyperplasia with [...] necessary changes of behavior discussed with patient 07/02/2024 Erectile dysfunction, unspecified erectile dysfunction type (ICD-10 - N52.9) 07/02/2024 Benign prostatic hyperplasia with lower urinary tract symptoms (ICD-10 - N40.1) Symptoms are stable at this time Plan Of Treatment Next Appt Details Provider Name:Bharat Parks , 01/03/2025 10:00:00 AM, [address], [address], [place] [id number], Insurance Providers Payer Name Payer Address Payer Phone Subscriber Number Group Number Insured Name Patient Relationship to Insured Coverage Start Date Coverage End Date [employer] (MEDICAR E) [address] [address] [place] [address] [id number] PARMINDER MOLINA Self - patient is the insured Medical (General) History Medical History History ICD Code Lung Cancer, Dx: 2021 t reated at [facility] with radiation and chemotherapy Depression Arthritis Benign Prostatic Hyperplasia COPD hepatitis B, s/p GI evaluation 2022 guillain barre syndrome, s/p flu vaccina tion in 1995 Surgical History Surgery Date(Month/Year)
--- OUTSIDE RECORDS SUMMARY | 2024-12-20 10:50 | XMS_ITS | Encounter Summary ---
Author Organization Healthcare Address [address] [place] [address] Care Team Providers Care Delivery Agent Name Role Phone Pcp, No Primary Care Provider Unavailabl e Encounter Details Date Type Department Care Team (Late st Contact Info) Description 10/05/2021 Orders Only [facility] [address] [place] [address] Margarita Dixon MD [address] [address] Social History Tobacco Use Types [...] Procedure Name Priority Date/Time Associated Diagnosis Comments FREE T4, PLASMA Routine 10/05/2021 11:20 AM EDT documented in this encounter Results * Free T4, Plasma (10/05/2021 11:20 AM EDT) External Free T4 1.15 0.93 - 1.70 ng/dL [facility] 10/05/2021 11:2 0 AM EDT 10/05/2021 11:40 AM EDT us Margarita Dixon MD LAB BLOOD ORDERABLES Renee l Result [facility] [address] [place] [phone], documented in this encounter Visit Diagnoses Not on filedocumented in this encounter Care Teams Delivery Agent Relationship Specialty Start Date End Date Pcp, Kayla [address] [place] [phone] PCP - General Family Medicine 04/07/21 documented as of this encounter
--- NOTE | 2024-12-20 11:00 | CT_ITS ---
FINAL REPORT TECHNIQUE: Axial imaging of the chest was obtained without contrast. Reformatted images were also obtained and reviewed.This study was performed with techniques to keep radiation doses as low as reasonably achievable, (ALARA). Individualized dose reduction technique using automated exposure control or adjustment of mA and/or kV according to the patient's size were employed. CLINICAL HISTORY: Nodule COMPARISON: 06/15/2024 FINDINGS: There is no axillary adenopathy. There is no hilar or mediastinal mass or adenopathy. Heart size is normal. There is no pericardial or pleural effusion. There has been presumed left lower lobe lobectomy. Persistent consolidation is seen in the left upper lobe with bronchiectasis. There is scattered scarring within the right lung. Increased, patchy ground glass opacities are seen at the lateral periphery of the right upper lobe best seen on images 27-34 of series 2, suspicious for bronchopneumonia. There is nonspecific enlargement of oval ground glass opacity in the right upper lobe on image 44 measuring 16 x 13 mm, previously measured 13 x 6 mm. Limited imaging of the upper abdomen demonstrates a tiny, nonobstructing right renal stone. IMPRESSION: 1. Stable left upper lobe consolidation. 2. New new, patchy opacity in the right upper lobe, favor bronchopneumonia. Recommend CT follow-up in 3 months. Reviewed, Interpreted and Dictated by Gigi Moreira MD Transcribed by Michelle Bernstein Authenticated and [facility]
[2024-12-20 12:06] LABS: Hematocrit 35.7 % (42.0-52.0); Hemoglobin 12.5 g/dL (14.1-18.0); Immature Granulocytes % 0.5 %; Mean Corpuscular HGB Conc 35.0 g/dL (31.8-35.4); Mean Corpuscular Hemoglobin 30.9 pg (27.0-31.2); Mean Corpuscular Volume 88.4 fl (80-94); Nucleated Red Blood Cells % 0 %; Platelet Count 312 K/mm3 (142-424); Red Blood Count 4.04 M/mm3 (4.60-6.20); Red Cell Distribution Width-SD 40.4 fL; White Blood Count 7.5 K/mm3 (4.8-10.8)
[2024-12-20 12:26] LABS: Albumin Level 4.1 g/dl (3.5-5.0); Chloride 94 mmol/L (98-107); Potassium 3.9 mmoL/L (3.5-5.1); Sodium 130 mmol/L (136-145)
[2024-12-20 12:29] LABS: Alanine Aminotransferase 16 U/L (12-78); Albumin/Globulin Ratio 1.4 (1.1-1.8); Alkaline Phosphatase 66 U/L (38-126); Anion Gap 13.9 mEq/L (5-15); Aspartate Amino Transferase 41 U/L (17-59); Bilirubin,Total 0.5 mg/dl (0.2-1.3); Blood Urea Nitrogen 14 mg/dl (9-20); Calcium 9.8 mg/dl (8.4-10.2); Carbon Dioxide 26 mmol/L (22.0-30.0); Creatinine,Serum 1.00 mg/dl (0.66-1.25); Estimated Glomerular Filt Rate 74 ml/min (>60); GFR (African American) 90 ML/MIN (>60); Globulin 3.0 g/dL (1.3-3.2); Glucose 91 mg/dl (74-100); Total Protein,Serum 7.1 g/dl (6.3-8.2)
== END 2024-12-20 23:59 | disposition home or self-care (01) ==
LOC: RAD 10:48
PROVIDERS: Nurse Practitioner Family; PCP Family Medicine; Visit Provider Internal Medicine Pulmonary Disease
DX: J18.1 Lobar pneumonia, unspecified organism (principal); R91.8 Other nonspecific abnormal finding of lung field; R91.1 Solitary pulmonary nodule; B18.1 Chronic viral hepatitis B without delta-agent
CPT/HCPCS: 36415; 71250; 80053; 82105; 85025; 87350; 87517